=== PATIENT | male | born 1970 | race Asian ===

== ENCOUNTER 2025-04-03 13:53 | Outpatient (AMB) | payer OTHER, SELFPAY ==
--- NOTE | 2025-04-03 13:58 | HO.NEPHOV_ITS ---
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 He has had hypertension since 2013. He was on losartan 100 mg and amlodipine. About 2 weeks ago spironolactone 25 mg has been added. In January he had a serum creatinine of 1.57 with a EGFR of 52 mL/minute. He had a urine microalbumin creatinine ratio of 532 and hence this referral. Recently was found to have elevated blood sugars. He has new onset diabetes mellitus Farxiga has been recently added and he is not on any other antidiabetic medication. He has no specific complaints today. No headache nausea or vomiting. No shortness of breath no cough or hemoptysis. No polyuria polydipsia no blood in urine. No leg edema no fever no rash. Father had end stage renal disease and he was on dialysis for almost 4 years at age of 75. He is . He has 4 brothers and a sister and he is not aware of any other family L kidney disease. [facility] Medical History (Updated 04/03/25 @ 14:12 by Sunday Red MD) Pain in shoulder region Impaired glucose tolerance Headache Essential hypertension Insomnia Dyslipidemia Type 2 diabetes mellitus Family History Mother Hypertensive disorder Father Hypertensive disorder Kidney disease Dialysis patient Social History (Updated 04/03/25 @ 14:00 by Kandis Cortez MA) Alcohol intake: never Patient Tobacco Use Status: Never used Tobacco Physical Exam Vital Signs: Last Vital Signs Pulse 89 04/03/25 14:02 BP 110/70 04/03/25 14:02 Pulse Ox 98 04/03/25 14:02 Oxygen Delivery Method Room Air 04/03/25 14:02 BMI result Body Mass Index 25.4 Comfortable Neck supple no JVD. Lungs entry equal no rales. Heart S1-S2 heard no gallop or rub. Abdomen soft nontender. Neuro alert awake oriented. No asterixis. Extremities no edema. Results Reviewed Results Reviewed: Labs reviewed As of January 2025 serum creatinine 1.57 EGFR 52 mL/minute. Urine microalbumin creatinine ratio 532 Assessment & Plan Assessment & Plan (1) CKD (chronic kidney disease): Code(s): N18.9 - Chronic kidney disease, unspecified Category: Medical (2) HTN (hypertension): Code(s): I10 - Essential (primary) hypertension Category: Medical Plan Pleasant 53-year-old man with the longstanding history of hypertension has microalbuminuria with CKD. He has an elevated blood sugar and slightly elevated hemoglobin A1c which was diagnosed recently he is not on any antidiabetic medications. The differential diagnosis for CKD and proteinuria is rather wide at this time. Hypertension could be a cause. Although proteinuria could be related to diabetes mellitus the duration of elevated blood sugars are not consistent. Father had end stage renal disease and given this family history he needs further workup for possible glomerular nephritis including IgA nephropathy. At the present time blood pressure is well controlled He appears euvolemic. Initiated a workup for CKD including a renal ultrasonogram. Basic urine studies including urine protein creatinine ratio and serum electrophoresis. For now I will continue the current dose of antihypertensives. Encouraged him to stand low-sodium diet. Maintain blood pressure less than 130/80. Maintain hemoglobin A1c less than 6.5%. Further workup will be based on the outcome of the above baseline investiga tions. I have reassured him and he returned to office in the next few weeks. . Orders: Orders Creatinine Urine Today I10 - Essential (primary) hypertension, N18.9 - Chronic kidney disease, unspecified Parathyroid Hormone Intact Today I10 - Essential (primary) hypertension, N18.9 - Chronic kidney disease, unspecified Total Protein Urine Random Today I10 - Essential (primary) hypertension, N18.9 - Chronic kidney disease, unspecified Complete Blood Count no Diff Today I10 - Essential (primary) hypertension, N18.9 - Chronic kidney disease, unspecified US renal BI Today I10 - Essential (primary) hypertension, N18.9 - Chronic kidney disease, unspecified Complement C3 Today I10 - Essential (primary) hypertension, N18.9 - Chronic kidney disease, unspecified Complement C4 Today I10 - Essential (primary) hypertension, N18.9 - Chronic kidney disease, unspecified Comprehensive Met. Panel Today I10 - Essential (primary) hypertension, N18.9 - Chronic kidney disease, unspecified UA and rflx microscopic Today I10 - Essential (primary) hypertension, N18.9 - Chronic kidney disease, unspecified LUBA Reflex Titer and Pattern Today I10 - Essential (primary) hypertension, N18.9 - Chronic kidney disease, unspecified Protein Electrophoresis, Serum Today I10 - Essential (primary) hypertension, N18.9 - Chronic kidney disease, unspecified Coding Level of Care Code New Pt Level 4 (62350) Diagnoses CKD (chronic kidney disease) N18.9 HTN (hypertension) I10
[2025-04-03 14:02] VITALS: BP 110/70; PULSE 89; O2SAT 98; BMI 25.4
--- OUTSIDE RECORDS SUMMARY | 2025-04-03 19:20 | XMS_ITS | Data Portability ---
Author Organization [facility] Address [address] [place] [address] Assessment Encounter Date Assessment Date Assessment LastModified by Organization Details LastModified Time 01/11/2024 01/11/2024 #1 patient is at home, with No one present in the room #2 provider is at [facility] in a secure private location #3 This is a Telehealth visit conducted over secure video #4 Verbal &/or Written consent obtained #5 Length of medical discussion 17 minutes liudmila Not available 01/11/2024 17:25:05 10/17/2024 10/17/2024 #1 patient is at home, with No one present in the room #2 provider is at [facility] in a secure private location #3 This is a Telehealth visit conducted over secure video #4 Verbal &/or Written consent obtained #5 Length of medical discussion 13 minutes liudmila Not available 10/17/2024 08:45:53 Plan of Treatment Reminders Order Date Submit Date Provider Last Modified By Organization Details Last Modified Time Details Appointments Physical Exam 2024 03:45P M Kem Davila MD Not available Not available Not available Lab HbA1c (hemoglob in A1c), blood 2024 025 [facility], [address], [place], [address], 12/11/2024 08:10:22 CMP, serum or plasma 2024 025 [facility], [address], [place], [address], 12/11/2024 08:10:22 lipid panel, serum 2024 025 [place] [address] [facility], [address], [address], [place], [address], 12/11/2024 08:10:22 microalbu min/creat inine, mass ratio, urine 2024 025 [place] [address] [facility], [address], [address], [place], [address], 12/11/2024 08:10:22 lipid panel, serum 2024 025 [place] [address] [facility], [address], [address], [place], [address], 08/12/2024 09:16:55 HbA1c (hemoglob in A1c), blood 2024 025 [place] [address] [facility], [address], [address], [place], [address], 08/12/2024 09:16:55 microalbu min/creat inine, mass ratio, urine 2023 024 [place] [address] [facility], [address], [address], [place], [address], 02/22/2024 08:13:19 protein electroph oresis, urine 2023 024 [place] [address] [facility], [address], [address], [place], [address], 02/22/2024 08:13:19 microalbu min/creat inine, mass ratio, urine 2023 024 DANN [facility], [address], [address], [place], [address], 12/08/2023 17:21:27 HbA1c (hemoglob in A1c), blood 2023 024 [facility], [address], [address], [place], [address], 01/09/2024 05:24:55 lipid panel, serum 2023 024 [facility], [address], [address], [place], [address], 01/09/2024 05:24:54 noninvasi ve colorecta l cancer DNA + occult blood screening , QL, stool [facility], [address], [address], [place], [address], 12/28/2023 20:49:59 CMP, serum or plasma 2023 024 [facility], [address], [address], [place], [address], 01/09/2024 05:24:55 Referral nephrolog ist referral - 54 year old male with DMT2, proteinur ia, HTN, and CKD stage 3. please evaluate 2024 025 ZHENG Banks MD, [address] [place] [address] Dr, [address], [place], [address], 03/27/2025 10:29:28 podiatris t referral - please evaluate and treat left heel pain, suspect calcaneal osteophyt e. recommend ed heel inserts 2024 025 [facility], [address] [place], [address], 06/21/2024 11:20:47 Procedures None recorded. Surgeries None recorded. Imaging None recorded. Medication Orders Farxiga 10 mg tablet 2024 025 [id number], [address] [place], [address], 02/11/2025 11:14:11 amlodipin e 10 mg tablet 2024 025 [facility], [address] [place], [address], 02/11/2025 11:14:13 losartan 100 mg tablet 2024 025 [facility], [address] [place], [address], 02/11/2025 11:14:12 spironola ctone 25 mg tablet 2024 025 [facility] [address] [place], [address], 02/11/2025 11:17:23 atorvasta tin 40 mg tablet 2024 025 [facility], [address] [place], [address], 10/17/2024 08:50:18 amlodipin e 10 mg tablet 2024 025 [facility] [address] [place], [address], 10/17/2024 08:50:18 losartan 100 mg tablet 2024 025 [facility], [address] [place], [address], 10/17/2024 08:50:17 atorvasta tin 40 mg tablet 2024 025 [facility], [address] [place] [address], [address], 06/19/2024 16:31:37 amlodipin e 10 mg tablet 2024 025 [facility], [address] [place], [address], 06/19/2024 16:31:37 losartan 100 mg tablet 2024 025 [facility] [address] [place], [address], 06/19/2024 16:31:38 atorvasta tin 40 mg tablet 2023 024 [facility] [address] [place], [address], 12/04/2023 18:07:08 amlodipin e 5 mg tablet 2023 025 [facility] [address] [place], [address], 10/17/2024 08:42:21 losartan 100 mg tablet 2023 024 [facility] [address] [place], [address], 12/04/2023 18:07:08 Patient TargetsNo targets recorded. Patient Instructions Encounter Date Encounter Id Patient Instructions Last Modified By Organization Details Last Modified Time 12/04/2023 [id number] learning about type 2 diabetes jokallo Not available 12/04/2023 18:07:05 type 2 diabetes: care instructions jokallo Not available 12/04/2023 18:07:04 advance directives: care instructions jokallo Not available 12/04/2023 18:07:04 A healthy lifestyle: care instructions jokallo Not available 12/04/2023 18:07:05 Risks and benefits of vaccine were discussed with the patient and/or guardian. Patient/Guardian understands the risks and benefits. Patient/Guardian refusing vaccine administration. jokallo Not available 12/04/2023 21:09:05 01/11/2024 [id number] proteinuria: car e instructions jokallo Not available 01/11/2024 17:27:27 06/19/2024 [id number] prediabetes: car e instructions jokallo Not available 06/19/2024 16:31:34 high blood pressure: care instructions ramónashutoshrand Not available 06/19/2024 16:31:34 learning about high blood pressure rajeevrand Not available 06/19/2024 16:31:34 10/17/2024 [id number] Risks and benefits of medication(s) discussed with patient. Patient verbalized understanding. ramónashutoshrand Not available 10/17/2024 08:50:20 02/11/2025 [id number] Risks and benefits of medication(s) discussed with patient. Patient verbalized understanding. 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 please evaluate Referring Physician: Kem Davila [facility], Encounter Date: 02/11/2025 Results Created Date Observation Date Name Description Value Unit Range Abnormal Flag Note LastModifiedBy Organization Detail LastModifiedTime 12/08/19 24 12/08/2023 ALBUM IN, RANDO M URINE W/CRE ATINI NE creatinine, random urine 27 mg/dL 20-320 normal Not Available [facility] [address], [address], 12/08/2023 17:21:27 12/08/19 24 12/08/2023 ALBUM IN, RANDO M URINE W/CRE ATINI NE albumin, urine 16.3 mg/dL see note: normal Refer ence Range : Refer ence Range Not estab lishe d Not Available [facility] [address], [address], 12/08/2023 17:21:27 12/08/19 24 12/08/2023 ALBUM IN, RANDO M URINE W/CRE ATINI NE albumin/crea tinine ratio, random urine 604 mg/g_ creat <30 high The ADA defin es abnor malit ies in album in excre tion as follo ws: Album inuri a Categ ory Resul t (mg/g creat inine ) Jaqui l to Mildl y incre ased <30 Moder ately incre ased 30-29 9 Sever vivian incre ased > OR = 300 The ADA recom mends that at least two of three speci mens colle cted withi n a 3-6 month perio d be abnor mal befor e consi marifer g a patie nt to be withi n a diagn ostic categ ory. Not Available [facility] [place] [facility] [address] [place], [place], [address], 12/08/2023 17:21:27 12/25/19 24 12/25/2023 COLOG UARD cologuard result reportable NEGATI VE negati ve normal NEGAT MAGDALENA TEST RESUL T. A negat magdalena Colog uard resul t indic ates a low likel ihood that a color ectal cance r (CRC) or advan alanna adeno ma (krzysztof omato us polyp s with more advan alanna pre-m align ant featu res) is prese nt. The chanc e that a perso n with a negat magdalena Colog uard test has a color ectal cance r is less than 1 in 1500 (nega tive predi ctive value >99.9 %) or has an advan alanna adeno ma is less than 5.3% (nega tive predi ctive value 94.7% ). These data are based on a prosp ectiv e cross -sect ional study of 10,00 0 indiv idual s at [place] risk for color ectal cance r who were scree josefa with both Colog uard and colon oscop y. (Glenn Lopez al, N Engl J Med 2014; 370(1 4):12 86-12 97) The jaqui l value (refe rence range ) for this assay is negat magdalena. COLOG UARD RE-SC REENI NG RECOM MENDA TION: Perio dic color ectal cance r scree jose is an impor tant part of preve ntive healt hcare for asymp tomat ic indiv idual s at [facility] risk for color ectal cance r. Follo wing a negat magdalena Colog uard resul t, the Ameri can Cance r Socie ty and U.S. Multi -Soci ety Task Force scree jose guide lines recom mend a Colog uard re-sc reedionicio ng inter nahum of 3 years . Refer ences : Ameri can Cance r Socie ty Guide line for Color ectal Cance r Scree jose: https ://trang w.can cer.o rg/ca ncer/ colon -rect al-ca ncer/ detec tion- diagn osis- stagi ng/ac s-rec ommen datio ns.ht ml.; Reji BLACKWELL, Lulu URIAS, Gomez RUVALCABA, Color ectal Cance r Scree jose: Recom menda tions for Physi cians and Patie nts from the U.S. Multi -Soci ety Task Force on Color ectal Cance r Scree jose , Am J Gastr carriente rolog y 2017; 112:1 016-1 030. TEST DESCR IPTIO N: [place] site algor ithmi c wilton sis of stool DNA-b ioaicha kers with hemog lobin immun oassa y. Quant itati ve value s of indiv idual bioma rkers are not repor table and are not assoc iated with indiv idual bioma rker resul t refer ence range s. Colog uard is inten ded for color ectal cance r scree jose of adult s of eithe r sex, 45 years or older , who are at the medical center for color ectal cance r (CRC) . Colog uard has been appro speedy for use by the U.S. FDA. The perfo rmanc e of Colog uard was estab lishe d in a cross secti onal study of the medical center adult s aged 50-84 . Colog uard perfo rmanc e in patie nts ages 45 to 49 years was estim ated by sub-g roup wilton sis of near- age group s. Colon oscop ies perfo rmed for a posit magdalena resul t may find as the most clini jayy signi ficmarily t lesio n: color ectal cance r [4.0% ], advan alanna adeno ma (incl uding sessi le padmini elaine polyp s great er than or equal to 1cm diame ter) [20%] or non- advan alanna adeno ma [31%] ; or no color ectal neopl lai [45%] . These estim ates are deriv ed from a prosp ectiv e cross -sect ional scree jose study of 0 indiv idual s at [facility] risk for color ectal cance r who were scree josefa with both Colog uard and colon oscop y. (Glenn Branch et al, N Engl J Med 2014; 370(1 4):12 86-12 97.) Colog uard may produ ce a false negat magdalena or false posit magdalena resul t (no color ectal cance r or preca ncero us polyp prese nt at colon oscop y follo w up). A negat magdalena Colog uard test resul t does not guara ntee the absen ce of CRC or advan alanna adeno ma (pre- cance r). The curre nt Colog uard scree jose inter nahum is every 3 years . (Amer ican Cance r Socie ty and U.S. Multi -Soci ety Task Force ). Colog uard perfo rmanc e data in a 0 patie nt pivot al study using colon oscop y as the refer ence metho d can be acces sed at the follo wing locat ion: www.e xactl abs.c om/re jean-paul . Addit ional descr iptio n of the Colog uard test proce ss, warni ngs and preca ution s can be found at www.c carol francisd.c om. Not Available [facility] [address], [place], [address], 12/28/2023 20:49:59 01/08/20 24 01/09/2024 LIPID PANEL WITH REFLE X TO DIREC T LDL cholesterol, total 158 mg/dL <200 normal Not Available [facility] [place] [facility] [address], [place], [address], 01/09/2024 05:24:54 01/08/20 24 01/09/2024 LIPID PANEL WITH REFLE X TO DIREC T LDL HDL cholesterol 40 mg/dL > or = 40 normal Not Available [facility] [place] [facility] [address], [place], [address], 01/09/2024 05:24:54 01/08/20 24 01/09/2024 LIPID PANEL WITH REFLE X TO DIREC T LDL triglyceride s 154 mg/dL <150 high Not Available [facility] [place] [facility] [address], [place], [address], 01/09/2024 05:24:54 01/08/20 24 01/09/2024 LIPID PANEL WITH REFLE X TO DIREC T LDL LDL-choleste rol 92 mg/dL _(emma c) normal Refer ence range : <100 Jeni able range <100 mg/dL for prima ry preve ntion ; <70 mg/dL for patie nts with CHD or diabe tic patie nts with > or = 2 CHD risk facto rs. LDL-C is now calcu lated using the Elissa n-Hop kins calcu rashid n, which is a valid ated novel randallo peyman trinh r accur acy than the Fried nubia equat ion in the estim ation of LDL-C . Elissa swartz SS et al. EMY. 2013; 310(1 9): 2061- 2068 (http ://ed ucati on.Qu Demetrius [employer]. com/f aq/FA Q164) Not Available [facility] [place] [facility] [address], [place], [address], 01/09/2024 05:24:54 01/08/20 24 01/09/2024 LIPID PANEL WITH REFLE X TO DIREC T LDL chol/HDLC ratio 4.0 (calc ) <5.0 normal Not Available [facility] [address], [place], [address], 01/09/2024 05:24:54 01/08/20 24 01/09/2024 LIPID PANEL WITH REFLE X TO DIREC T LDL non HDL cholesterol 118 mg/dL _(emma c) <130 normal For patie nts with diabe malia plus 1 major ASCVD risk facto r, treat ing to a non-H DL-C goal of <100 mg/dL (LDL- C of <70 mg/dL ) is consi beverley worthington optio n. Not Available [facility] [place] [facility] [address], [place], [address], 01/09/2024 05:24:54 01/08/20 24 01/09/2024 COMPR EHENS MAGDALENA METAB OLIC PANEL glucose 94 mg/dL 65-99 normal Fasti ng refer ence inter nahum Not Available [facility] [place] [facility] [address], [place], [address], 01/09/2024 05:24:55 01/08/20 24 01/09/2024 COMPR EHENS MAGDALENA METAB OLIC PANEL urea nitrogen (BUN) 20 mg/dL 7-25 normal Not Available [facility] [address], [place], [address], 01/09/2024 05:24:55 01/08/20 24 01/09/2024 COMPR EHENS MAGDALENA METAB OLIC PANEL creatinine 1.25 mg/dL 0.70-1 .30 normal Not Available [facility] [address], [place], [address], 01/09/2024 05:24:55 01/08/20 24 01/09/2024 COMPR EHENS MAGDALENA METAB OLIC PANEL eGFR 69 mL/mi n/1.7 3m2 > or = 60 normal Not Available [facility] [place] [facility] [address], [place], [address], 01/09/2024 05:24:55 01/08/20 24 01/09/2024 COMPR EHENS MAGDALENA METAB OLIC PANEL BUN/creatini ne ratio SEE NOTE: (calc ) 6-22 Not Repor elaine: BUN and Creat inine are withi n refer ence range . Not Available [facility] [address], [place], [address], 01/09/2024 05:24:55 01/08/20 24 01/09/2024 COMPR EHENS MAGDALENA METAB OLIC PANEL sodium 138 mmol/ L 135-14 6 normal Not Available [facility] [address], [place], [address], 01/09/2024 05:24:55 01/08/20 24 01/09/2024 COMPR EHENS MAGDALENA METAB OLIC PANEL potassium 3.9 mmol/ L 3.5-5. 3 normal Not Available [facility] [address], [place], [address], 01/09/2024 05:24:55 01/08/20 24 01/09/2024 COMPR EHENS MAGDALENA METAB OLIC PANEL chloride 109 mmol/ L 98-110 normal Not Available [facility] [address], [place], [address], 01/09/2024 05:24:55 01/08/20 24 01/09/2024 COMPR EHENS MAGDALENA METAB OLIC PANEL carbon dioxide 22 mmol/ L 20-32 normal Not Available [facility] [address], [place], [address], 01/09/2024 05:24:55 01/08/20 24 01/09/2024 COMPR EHENS MAGDALENA METAB OLIC PANEL calcium 8.9 mg/dL 8.6-10 .3 normal Not Available [facility] [address], [place], [address], 01/09/2024 05:24:55 01/08/20 24 01/09/2024 COMPR EHENS MAGDALENA METAB OLIC PANEL protein, total 6.9 g/dL 6.1-8. 1 normal Not Available [facility] [address], [place], [address], 01/09/2024 05:24:55 01/08/20 24 01/09/2024 COMPR EHENS MAGDALENA METAB OLIC PANEL albumin 4.5 g/dL 3.6-5. 1 normal Not Available [facility] [address], [place], [address], 01/09/2024 05:24:55 01/08/20 24 01/09/2024 COMPR EHENS MAGDALENA METAB OLIC PANEL globulin 2.4 g/dL_ (calc ) 1.9-3. 7 normal Not Available [facility] [address], [place], [address], 01/09/2024 05:24:55 01/08/20 24 01/09/2024 COMPR EHENS MAGDALENA METAB OLIC PANEL albumin/glob ulin ratio 1.9 (calc ) 1.0-2. 5 normal Not Available [facility] [address], [place], [address], 01/09/2024 05:24:55 01/08/20 24 01/09/2024 COMPR EHENS MAGDALENA METAB OLIC PANEL bilirubin, total 0.8 mg/dL 0.2-1. 2 normal Not Available [facility] [address], [place], [address], 01/09/2024 05:24:55 01/08/20 24 01/09/2024 COMPR EHENS MAGDALENA METAB OLIC PANEL alkaline phosphatase 73 U/L 35-144 normal Not Available [facility] [place] [facility] [address], [address], 01/09/2024 05:24:55 01/08/20 24 01/09/2024 COMPR EHENS MAGDALENA METAB OLIC PANEL AST 20 U/L 10-35 normal Not Available [facility] [place] [facility] [address], [place], [address], 01/09/2024 05:24:55 01/08/20 24 01/09/2024 COMPR EHENS MAGDALENA METAB OLIC PANEL ALT 31 U/L 9-46 normal Not Available [facility] [place] [facility] [address], [address], 01/09/2024 05:24:55 01/08/20 24 01/09/2024 HEMOG LOBIN A1C hemoglobin A1C 6.4 %_of_ total _HGB <5.7 high For someo ne witho ut known diabe malia, a hemog lobin A1c value betwe en 5.7% and 6.4% is consi stent with predi abete s and shoul d be confi rmed with a follo w-up test. For someo ne with known diabe malia, a value <7% indic ates that their diabe malia is well contr olled . A1c targe ts shoul d be indiv idual ized based on durat ion of diabe malia, age, comor bid condi tions , and other consi derat ions. This assay resul t is consi stent with an incre ased risk of diabe malia. Curre ntly, no conse nsus exist s regar ding use of hemog lobin A1c for diagn osis of diabe malia for child ivania. This test was perfo rmed on the Nicolasa brynn c503 platf orm. Effec tive 3/4/2 4, a taya e in test platf orms from the [facility] to the Nicolasa brynn c503 may have shift ed HbA1c resul ts cindy red to histo rical resul ts. Based on labor atory valid ation testi ng condu cted at [employer] , the Nicolasa platf orm relat magdalena to the [facility] platf orm had an avera ge incre ase in HbA1c value of < or = 0.3%. This diffe rence is withi n accep elaine varia bilit y estab lishe d by the [facility] hemog lobin Stand brandonz ation Progr am. Note that not all indiv idual s will have had a shift in their resul ts and direc t cindy rison s betwe en histo rical and curre nt resul ts for testi ng condu cted on diffe rent platf orms is not recom lucius d. Not Available [facility] [place] [facility] [address], [address], 01/09/2024 05:24:55 01/25/20 25 01/25/2025 LIPID PANEL WITH REFLE X TO DIREC T LDL cholesterol, total 164 mg/dL <200 normal Not Available [facility] [place] [facility] [address], [address], 01/25/2025 21:25:14 01/25/20 25 01/25/2025 LIPID PANEL WITH REFLE X TO DIREC T LDL HDL cholesterol 44 mg/dL > or = 40 normal Not Available [facility] [place] [facility] [address], [address], 01/25/2025 21:25:14 01/25/20 25 01/25/2025 LIPID PANEL WITH REFLE X TO DIREC T LDL triglyceride s 116 mg/dL <150 normal Not Available [facility] [address], [address], 01/25/2025 21:25:14 01/25/20 25 01/25/2025 LIPID PANEL WITH REFLE X TO DIREC T LDL LDL-choleste rol 99 mg/dL _(emma c) normal Refer ence range : <100 Jeni able range <100 mg/dL for prima ry preve ntion ; <70 mg/dL for patie nts with CHD or diabe tic patie nts with > or = 2 CHD risk facto rs. LDL-C is now calcu lated using the Elissa n-Hop kins calcu latnima n, which is a valid ated novel metho d provi mike gayathri r accur acy than the Fried nubia equat ion in the estim ation of LDL-C . Elissa swartz SS et al. EMY. 2013; 310(1 9): 2061- 2068 (http ://ed ucati on.[employer]. [employer]/f aq/FA Q164) Not Available [facility] [address], [address], 01/25/2025 21:25:14 01/25/20 25 01/25/2025 LIPID PANEL WITH REFLE X TO DIREC T LDL chol/HDLC ratio 3.7 (calc ) <5.0 normal Not Available [facility] [address], [place], [address], 01/25/2025 21:25:14 01/25/20 25 01/25/2025 LIPID PANEL WITH REFLE X TO DIREC T LDL non HDL cholesterol 120 mg/dL _(emma c) <130 normal For patie nts with diabe malia plus 1 major ASCVD risk facto r, treat ing to a non-H DL-C goal of <100 mg/dL (LDL- C of <70 mg/dL ) is consi dered a thera peuti c optio n. Not Available [facility] [address], [address], 01/25/2025 21:25:14 01/25/20 25 01/25/2025 ALBUM IN, RANDO M URINE W/CRE ATINI NE creatinine, random urine 134 mg/dL 20-320 normal Not Available [facility] [address], [place], [address], 01/25/2025 21:25:14 01/25/2001/25/2025 ALBUM IN, RANDO M URINE W/CRE ATINI NE albumin, urine 75.3 mg/dL see note: normal Refer ence Range : Refer ence Range Not estab lishe d Verif ied by repea t wilton sis. Not Available [facility] [address], [place], [address], 01/25/2025 21:25:14 01/25/2001/25/2025 ALBUM IN, RANDO M URINE W/CRE ATINI NE albumin/crea tinine ratio, random urine 562 mg/g_ creat <30 high The ADA defin es abnor malit ies in album in excre tion as follo ws: Album inuri a Categ ory Resul t (mg/g creat inine ) Jaqui l to Mildl y incre ased <30 Moder ately incre ased 30-29 9 Sever vivian incre ased > OR = 300 The ADA recom mends that at least two of three speci mens colle cted withi n a 3-6 month perio d be abnor mal befor e consi marifer g a patie nt to be withi n a diagn ostic categ ory. Not Available [facility] [address], [place], [address], 01/25/2025 21:25:14 01/25/2001/25/2025 COMPR EHENS MAGDALENA METAB OLIC PANEL glucose 111 mg/dL 65-139 normal Non-f astin g refer ence inter nahum Not Available [facility] [address], [place], [address], 01/25/2025 21:25:15 01/25/20 25 01/25/2025 COMPR EHENS MAGDALENA METAB OLIC PANEL urea nitrogen (BUN) 23 mg/dL 7-25 normal Not Available [facility] [address], [place], [address], 01/25/2025 21:25:15 01/25/20 25 01/25/2025 COMPR EHENS MAGDALENA METAB OLIC PANEL creatinine 1.57 mg/dL 0.70-1 .30 high Not Available [facility] [address] [address], [place], [address], 01/25/2025 21:25:15 01/25/20 25 01/25/2025 COMPR EHENS MAGDALENA METAB OLIC PANEL eGFR 52 mL/mi n/1.7 3m2 > or = 60 low Not Available [facility] [address], [place], [address], 01/25/2025 21:25:15 01/25/20 25 01/25/2025 COMPR EHENS MAGDALENA METAB OLIC PANEL BUN/creatini ne ratio 15 (calc ) 6-22 normal Not Available [facility] [address], [place], [address], 01/25/2025 21:25:15 01/25/20 25 01/25/2025 COMPR EHENS MAGDALENA METAB OLIC PANEL sodium 140 mmol/ L 135-14 6 normal Not Available [facility] [address], [place], [address], 01/25/2025 21:25:15 01/25/20 25 01/25/2025 COMPR EHENS MAGDALENA METAB OLIC PANEL potassium 3.7 mmol/ L 3.5-5. 3 normal Not Available [facility] [address], [place], [address], 01/25/2025 21:25:15 01/25/20 25 01/25/2025 COMPR EHENS MAGDALENA METAB OLIC PANEL chloride 107 mmol/ L 98-110 normal Not Available [facility] [address], [place], [address], 01/25/2025 21:25:15 01/25/20 25 01/25/2025 COMPR EHENS MAGDALENA METAB OLIC PANEL carbon dioxide 24 mmol/ L 20-32 normal Not Available [facility] [address], [place], [address], 01/25/2025 21:25:15 01/25/20 25 01/25/2025 COMPR EHENS MAGDALENA METAB OLIC PANEL calcium 8.9 mg/dL 8.6-10 .3 normal Not Available [facility] [address], [place], [address], 01/25/2025 21:25:15 01/25/20 25 01/25/2025 COMPR EHENS MAGDALENA METAB OLIC PANEL protein, total 6.5 g/dL 6.1-8. 1 normal Not Available [facility] [address], [place], [address], 01/25/2025 21:25:15 01/25/20 25 01/25/2025 COMPR EHENS MAGDALENA METAB OLIC PANEL albumin 4.3 g/dL 3.6-5. 1 normal Not Available [facility] [address], [place], [address], 01/25/2025 21:25:15 01/25/20 25 01/25/2025 COMPR EHENS MAGDALENA METAB OLIC PANEL globulin 2.2 g/dL_ (calc ) 1.9-3. 7 normal Not Available [facility] [address], [place], [address], 01/25/2025 21:25:15 01/25/20 25 01/25/2025 COMPR EHENS MAGDALENA METAB OLIC PANEL albumin/glob ulin ratio 2.0 (calc ) 1.0-2. 5 normal Not Available [facility] [address], [place], [address], 01/25/2025 21:25:15 01/25/20 25 01/25/2025 COMPR EHENS MAGDALENA METAB OLIC PANEL bilirubin, total 0.7 mg/dL 0.2-1. 2 normal Not Available [facility] [address], [place], [address], 01/25/2025 21:25:15 01/25/20 25 01/25/2025 COMPR EHENS MAGDALENA METAB OLIC PANEL alkaline phosphatase 78 U/L 35-144 normal Not Available [facility] [address], [place], [address], 01/25/2025 21:25:15 01/25/20 25 01/25/2025 COMPR EHENS MAGDALENA METAB OLIC PANEL AST 23 U/L 10-35 normal Not Available [facility] [address], [place], [address], 01/25/2025 21:25:15 01/25/20 25 01/25/2025 COMPR EHENS MAGDALENA METAB OLIC PANEL ALT 40 U/L 9-46 normal Not Available [facility] [address], [address], 01/25/2025 21:25:15 01/25/2001/25/2025 HEMOG LOBIN A1C hemoglobin A1C 7.3 % <5.7 high For someo ne witho ut known diabe malia, a hemog lobin A1c value of 6.5% or great er indic ates that they may have diabe malia and this shoul d be confi rmed with a follo w-up test. For someo ne with known diabe malia, a value <7% indic ates that their diabe malia is well contr olled and a value great er than or equal to 7% indic ates subop timal contr ol. A1c targe ts shoul d be indiv idual ized based on durat ion of diabe malia, age, comor bid condi tions , and other consi derat ions. Curre ntly, no conse nsus exist s angelitoar mike use of hemog lobin A1c for diagn osis of diabe malia for child ivania. Not Available [facility] [address], [place], [address], 01/25/2025 21:25:15 Result Notes None recorded. Problems Name Problem SNOMED Code Status Onset Date Resolution Date Notes Provider Name and Address Organization Details Recorded Time Essential hypertensio n 10259153 Active Kem Davila MD [address] [place] [address], [address], [facility] 2 10:15:35 Headache 26394978 Active Karl Ci Li [facility] 6 19:57:12 Insomnia 649859957 Active Karl Ci Li [facility] 6 19:57:12 Pain of shoulder region 60886492 Active Karl Ci Li [facility] 6 19:57:12 Impaired glucose tolerance 9144300 Active Karl Ci Li [facility] 6 19:57:12 Hyperlipide brit 65425106 Completed 05/16/2018 Kem Davila MD [address] [place] [address], [address], [facility] 9 09:30:10 Dyslipidemi a 428363187 Active 2018 Kem Davila MD [address] [place] [address], [address], [facility] 2 10:15:29 Type 2 diabetes mellitus 32359089 Active 2020 Kem Davila MD [address] [place] [address], [address], [facility] 5 11:01:53 Problem Notes None recorded. Procedures Surgical History Date Name Laterality Status Provider Name and Address Organization Details Recorded Time 5 Diabetic Foot Exam completed Kem Davila MD [address] [place], [address], [facility] 03/05/2025 09:30:45 4 Diabetic Foot Exam completed Kem Davila MD [address] [place], [address], [facility] 12/04/2023 18:10:26 1 DSMT/s Assessment / Education Record completed Hortencia Al RN [facility] 03/17/2021 16:04:32 Imaging Results None recorded. Procedure Notes None recorded. Medical Equipment None Reported. Allergies No known drug allergies Medications Name Sig Start Date Stop Date Status Note LastModified by Organization Details LastModified Time losartan 50 mg tablet TAKE 2 TABLETS BY MOUTH DAILY AT THE SAME TIME 03/02 completed Not Available Not Available Not Available atorvastatin 40 mg tablet TAKE 1 TABLET BY MOUTH EVERY DAY 2024 active Not Available Not Available Not Avai lable amlodipine 2.5 mg tablet TAKE 1 TABLET BY MOUTH EVERY DAY - NEEDS F/U FOR REFILLS 06/21 completed Not Available Not Available Not Available melatonin 3 mg tablet Take 1 tablet every day by oral route at bedtime as needed for sleeping . 07/17 completed Not Available Not Available Not Available amlodipine 5 mg tablet Take 1 tablet every day by oral route. 10/17 completed Not Available Not Available Not Available spironolacto ne 25 mg tablet Take 1 tablet every day by oral route, for Blood pressure . 2024 active Not Available Not Available Not Avai lable amlodipine 10 mg tablet Take 1 tablet every day by oral route. 2024 active Not Available Not Available Not Avai lable simvastatin 20 mg tablet TAKE 1 TABLET BY MOUTH EVERY DAY active Not Available Not Available No t Available losartan 25 mg tablet TAKE 1 TABLET BY MOUTH EVERY DAY 07/10 completed Not Available Not Available Not Available diclofenac sodium 75 mg tablet,delay ed release Take 1 tablet twice a day by oral route. 03/16 completed Not Available Not Available Not Available losartan 100 mg tablet TAKE 1 TABLET BY MOUTH EVERY DAY 2024 active Not Available Not Available Not Avai lable fluticasone propionate 50 mcg/actuatio n nasal spray,suspen fernanda INHALE ONE SPRAY PER NOSTRIL DAILY 03/05 completed Not Available Not Available Not Available Augmentin 500 mg-125 mg tablet Take 1 tablet every 8 hours by oral route for 7 days. 09/19 completed Not Available Not Available Not Available Excedrin Tension Headache 500 mg-65 mg tablet Take 2 tablets every 6 hours by oral route as needed. 09/19 completed Not Available Not Available Not Available Farxiga 10 mg tablet Take 1 tablet every day by oral route. 2024 active Not Available Not Available Not Avai lable Vitals Date Recorded Body height Body mass index (BMI) Body weight Respiratory rate Heart rate Oxygen saturation Systolic And Diastolic Systolic And Diastolic Provider Name and Address Organization Details Last Updated DateTime 5 167.01 cm 22.8 kg/m2 79801.9 3 g 18 /min 90 /min 99 % 150/90 mm[Hg] 148/90 mm[Hg] Sobeida Wells [facility] 16:10:39 Date Recorded Body height Systolic And Diastolic Systolic And Diastolic Provider Name and Address Organization Details Last Updated DateTime 10/17/2024 167.01 cm 155/92 mm[Hg] 124/89 mm[Hg] Kem Davila MD [address] [place], [address], [facility] 10/17/2024 08:44:37 Date Recorded Body height Body mass index (BMI) Body weight Respiratory rate Oxygen saturation Heart rate Systolic And Diastolic Systolic And Diastolic Provider Name and Address Organization Details Last Updated DateTime 4 167.01 cm 22.8 kg/m2 82522.9 3 g 18 /min 97 % 74 /min 148/99 mm[Hg] 149/100 mm[Hg] Sobeida Wells [facility] 4 17:36:43 Date Recorded Body height Heart rate Systolic And Diastolic Systolic And Diastolic Provider Name and Address Organization Details Last Updated DateTime 01/11/2024 167.01 cm 74 /min 163/101 mm[Hg] 157/97 mm[Hg] Kem Davila MD [address] [place], [address] , [facility] 01/11/2024 17:17:49 Date Recorded Body height Body mass index (BMI) Body weight Body temperature Heart rate Oxygen saturation Systolic And Diastolic Systolic And Diastolic Provider Name and Address Organization Details Last Updated DateTime 167.01 cm 26.4 kg/m2 09904.7 1 g 96 [degF] 73 /min 99 % 153/93 mm[Hg] 156/95 mm[Hg] Faina Castro [facility] 5 10:44:38 Social History Question Answer Notes LastModified by Organization Details LastModified Time Tobacco Smoking Status [email or web address] 03/05/2022 09:57:10 Do You Have An Advance Directive? No Information not available 12/04/2023 What Is Your Level Of Caffeine Consumption? Occasional Tea Sometimes Information not available 06/12/2015 How Much Tobacco Do You Chew? None Information not available 06/12/2015 In The 14 Days Before Symptom Onset, Have You Had Close Contact With A Laboratory-confir med COVID-19 While That Case Was Ill? No [email or web address] Information not available 06/11/2020 In The 14 Days Before Symptom Onset, Have You Had Close Contact With A Person Who Is Under Investigation For COVID-19 While That Person Was Ill? No [email or web address] Information not available 06/11/2020 Have You Been To An Area Known To Be High Risk For COVID-19? No Information not available 06/11/2020 What Type Of Diet Are You Following? REGULAR Eats Chicken Only Information not available 06/12/2015 Education 4 Year College Informatio n not available 06/12/2015 Who Is Your Employer? [employer] Information not available 12/04/2023 Have There Been Any Changes To Your Family Or Social Situation? No Information not available 12/04/2023 Are There Any Guns Present In Your Home? No Information not available 06/12/2015 Hard Of Hearing Or Deaf In One Or Both Ears? No [email or web address] Information not available 05/19/2015 Legally Blind In One Or Both Eyes? No [email or web address] Information not available 05/19/2015 Live Alone Or With Others? With Others Information not available 06/12/2015 Homeless Not Homeless Information not available 08/15/2018 In The Past Month, Was There Any Day When You Or Someone In Your Family Went Hungry Because You Didn't Have Money For Food? No [email or web address] Information not available 08/15/2018 Do You Need Help Finding Clothing Or Other Supplies For Yourself Or For Your Children? No Information not available 08/15/2018 Do You Need Medicine But Cannot Buy It Because It Is Too Expensive? No [email or web address] Information not available 08/15/2018 Do You Need Transportation To Medical Appointments? No Information not available 08/15/2018 Do You Worry That You Can't Pay Your Utility Bill(s)? (electric, Gas, Heating Oil, Telephone) No [email or web address] Information not available 03/05/2022 Do You Prefer To Learn By: Verbal Communication [email or web address] Information not available 08/15/2018 Do You Have Any Of The Following Barriers To Learn: None Of The Above Information not available 08/15/2018 Last [facility] Completion Date 02/11/2025 Information not available 02/11/2025 Did You Have A Dental Visit In The Last 12 Months? Yes Information not available 12/04/2023 Did You Have A Dental Problem In The Last 6 Months? No Information not available 12/04/2023 Do You Commonly Experience Dry Mouth (i.e., Requiring Swallowing Water To Eat Crackers)? No Information not available 12/04/2023 Do You Experience Stomach Acid In Your Mouth Or Throat After Eating Or When Lying Down On A Daily Or Almost Daily Basis? No Information not available 12/04/2023 Do You Experience Tooth Pain Or Bleeding Gums When You Eat Or Ogden Your Teeth? No Information not available 12/04/2023 Has Anyone In The Immediate Family (including A Caregiver) Had Tooth Decay Or Lost A Tooth From Tooth Decay In The Past Year? (Yes Indicates Positive Result) No Information not available 12/04/2023 On Average, How Many Days Per Week Do You Ogden Your Teeth For At Least Two Minutes, Twice Daily, Using Fluoride Toothpaste And Floss At Least Once Daily? 7 Information not available 12/04/2023 On Average, How Many Times Daily Do You Consume Starch Or Sugar (sugary Snacks Or Sugary Drinks) Between Meals? 2-3 Information not available 12/04/2023 Are You Deaf Or Do You Have Serious Difficulty Hearing? No Information not available 12/04/2023 Are You Blind Or Do You Have Serious Difficulty Seeing, Even When Wearing Glasses? No Information not available 12/04/2023 Date Of Last Completion 12/04/2023 Information not available 12/04/2023 Are You Deaf Or Do You Have Serious Difficulty Hearing? Test 1 No Information not available 12/04/2023 Aged 5 Or Older: Do You Have Difficulty Dressing Or Bathing? Test No Information not available 12/04/2023 Marital Status Informatio n not available 06/12/2015 What Was The Date Of Your Most Recent Tobacco Screening? 02/11/2025 Information not available 02/11/2025 How Many Children Do You Have? 2 Information not available 12/04/2023 What Is Your Relationship Status? In [facility], > 20 Years Information not available 12/04/2023 Do You Use Your Seat Belt Or Car Seat Routinely? Yes Information not available 06/12/2015 Are You Sexually Active? No Information not available 06/12/2015 Do You Have Smoke And Carbon Monoxide Detectors In Your Home? Yes Information not available 06/12/2015 How Much Tobacco Do You Smoke? No Information not available 05/19/2015 Do You Use Sunscreen Routinely? No Information not available 06/12/2015 Has Tobacco Cessation Counseling Been Provided? Yes Information not available 12/04/2023 On What Date Was Tobacco Cessation Counseling Provided? 12/04/2023 Information not available 12/04/2023 How Many Years Have You Smoked Tobacco? 0 [email or web address] Information not available 03/03/2016 Sex: Male Functional Status Question Answer Note LastModified by Organizat ion Details LastModified Time Do you or have you ever used any other forms of tobacco or nicotine? No [email or web address] Information not available 03/05/2022 What is your level of alcohol consumption? None [email or web address] Information not available 12/02/2015 Are you currently employed? Yes Information not available 06/12/2015 Do you have transportation difficulties? No Information not available 12/04/2023 Are you able to care for yourself independently? 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 None recommend pt exercise Information not available 06/12/2015 Mental Status None recorded. Family History Relationship Description Onset Age of this Age Resolved Age Notes LastModified by Organization Details LastModified Time Mother Hypertensive disorder [email or web address] Not available 2015 19:51:32 Father Hypertensive disorder [email or web address] Not available 2015 19:51:32 Father Kidney disease on dialys is [email or web address] Not available 07/17/2017 09:51:53 Notes:Colon Cancer: None Pro state Cancer: None Medical History Condition Response Gout N Anxiety/Depression N Renal Failure N Kidney Stones N Breast Cancer N Erectile Dysfunction N Lung Cancer N Reflux Disease (GERD/Heartburn/Reflux) N Testicular Cancer N Incontinence N Hepatitis (A,B or C) N Drug Abuse/Addiction N Chronic Neck or Back Pain N Post Traumatic Stress Disorder N Headaches/Migraines N Alcoholism N Tuberculosis or a Positive PPD N Seizure Disorder (Epilepsy) N Hemorrhoids N Frequent Ear Infections N Frequent Sinus Infections N Blood Clot N Other type of Cancer N Stroke N ADHD N Endometriosis N High Cholesterol Y Skin Cancer N Colorectal Cancer N Rheumatoid Arthritis N Panic Disorder N Fibromyalgia N Schizophrenia N Irritable Bowel Syndrome N Chronic Fatigue Syndrome N Osteoarthritis N Scoliosis N Thyroid Disorder or Cancer N Frequent Urinary Tract Infections N Ulcers or Gastrointestinal Bleed N Prostate Cancer N Gallstones N Eating Disorder N PreDiabetes N Anemia N COPD (emphysema or chronic bronchitis) N Diabetes N Cervical/Uterine/Ovarian Cancer N Cataracts N Benign Prostate Hyperplasia (BPH) N Allergic Rhinitis N Insomnia N Eczema N Obsessive Compulsive Disorder (OCD) N Asthma N Heart Attack N Lupus N Psoriasis N Crohn's Disease or Ulcerative Colitis N Bipolar Disorder N Autism N Sleep Apnea N AIDS or HIV N Heart Disease N Hypertension Y Osteoporosis N Immunizations Vaccine Type Date Status Note Provider Name and Address Organization Details Recorded Time Influenza, split virus, quadrivalent, PF 017 cancelled patient objection Not Available [facility] 06/01/2019 02:13:16 Influenza, split virus, quadrivalent, PF 017 completed Not Available [facility] 06/01/2019 02:13:15 Tdap 018 cancelled patient objection Not Available [facility] 06/01/2019 02:13:28 Influenza, high-dose, trivalent, PF 016 completed Sammie Caceres [facility] 03/03/2016 09:18:24 COVID-19, mRNA, LNP-S, PF, 30 mcg/0.3 mL dose 021 completed Faina Linder RN [facility] 03/30/2021 18:07:45 Influenza, split virus, quadrivalent, PF 022 cancelled patient objection Kem Davila MD [address] [place], [address], [facility] 03/07/2022 20:23:15 COVID-19, mRNA, LNP-S, bivalent, PF, 50 mcg/0.5 mL or 25mcg/0.25 mL dose 022 cancelled patient objection Kem Davila MD [address] [place], [address], [facility] 03/07/2022 20:23:15 Influenza, split virus, quadrivalent, PF 023 cancelled patient objection Kem Davila MD [address] [place], [address], [facility] 06/20/2022 13:00:54 COVID-19, mRNA, LNP-S, bivalent, PF, 50 mcg/0.5 mL or 25mcg/0.25 mL dose 023 cancelled patient objection Kem Davila MD [address] [place] [address], [address], [facility] 06/20/2022 13:00:54 pneumococcal polysaccharide PPV23 023 cancelled patient objection Kem Davila MD [address] [place] [address], [address], [facility] 06/20/2022 13:00:54 Tdap 024 cancelled patient objection Kem Davila MD [address] [place] [address], [address], [facility] 12/04/2023 21:03:22 COVID-19, mRNA, LNP-S, PF, 30 mcg/0.3 mL dose 021 completed Sobeida Wells [facility] 12/04/2023 17:32:00 Past Encounters Encounter ID Performer Location Encounter Start Date Encounter Closed Date Diagnosis/Indication Diagnosis SNOMED-CT Code Diagnosis ICD10 Code Diagnosis IMO Codes Diagnosis Note [id number] Abdelrahman Berger MD [address] [address] 05/19/2015 15:09:41 05/19/2015 16:09:59 Essential hypertension 53838021 I10 stable, follow -consider dec meds at next visit Pain of [place] region 87929337 M25.511 ddx-rotato r cuff tear, labral tear, sprain, OA -likely rotator cuff strain -pt f6w, f/u if not improving consider mri -pt refused steroid injection [id number] YENNI HUIZAR [address] [address] 06/12/2015 09:58:31 06/12/2015 11:48:37 Adult health examination 375733119 Z00.00 well visit Laboratory test 89435823 Z00.00 Essential hypertension 10002486 I10 advise pt to go home and restart his BP medication s as directed limit of salt start exercises Headache 06273107 R51 r/t lack of sleep take advil as needed for pain Insomnia 323121362 G47.0 0 start melatonin as directed Pain of ouer region 27041304 M25.511 sx improving continue advil as needed for pain unable to continue PT due to too experience continue shoulder exercises Diabetes m ellitus screening 359086641 Z13.1 [id number] YENNI HUIZAR [address] [address] 09/10/2015 08:55:26 09/10/2015 10:47:00 Essential hypertension 48413588 I10 well controlled continue same meds continue exercises and diet changes Headache 99048828 R51 r/t lack of sleep well controlled . no JOSEPH since pt able to sleep continue advil as needed for recurrs JOSEPH Insomnia 420983630 G47.0 0 well controlled continue same med Pain of [facility] [place] 19555612 M25.511 sx continue improving continue advil as needed for pain pt declined PT, will do the shoulder exercises at home, since he almost have complete FullROM Impaired g lucose tolerance 6983638 R73.02 check hgba1c today continue exercises and diet changes Hyperlipidemia 36161597 E78.5 check fasting lipid today continue exercises and diet changes [id number] Kem Davila MD [address] [address] 12/02/2015 15:47:26 12/02/2015 16:32:11 Dyslipidemia 060065804 E78.5 New dx of dyslipidem ia- Discussed importance of changing his diet- Encourage pt to start exercising - Start simvastati n- reassess in 3 months Essential hypertension 82536501 I10 HTN controlled - refill amlodipine [id number] Sj Lezama MD [address] [address] 03/03/2016 08:58:27 03/03/2016 09:36:14 Hyperlipidemia 27377299 E78.5 dietary modsrepeat labs [facility] 30041666 M25.512 exerciseac tivity as tolerated Prediabetes 119649773 R7 3.03 [id number] Kem Davila MD [address] [address] 08/18/2016 11:01:11 08/18/2016 14:39:56 Hyperlipidemia 74271879 E78.2 Dyslipidem ia, pt has stopped medication - Order CMP Essential hypertension 23592792 I10 HTN controlled - Stop amlodipine - Refill losartan 50mg po daily Paresthesia 29818321 R20 .2 Paresthesi as in hands and feet-Order Labs- reassess in 1 month Thoracic back pain 27101 8004 M54.6 Thoracic back pain likely from poor posture at work- Discussed remedies for improving posture- If no improvemen t in 1 month, referral to PT [id number] Kem Davila MD [address] [address] 09/15/2016 10:03:35 09/15/2016 10:56:19 Dyslipidemia 024213948 E78.5 Dyslipidem ia- Discussed importance of changing his diet- Encourage pt to start exercising - Continue simvastati n 20mg po daily- reassess in 3 months Essential hypertension 34520331 I10 HTN controlled - Decrease losartan 25mg po daily Bilateral carpal tunnel syndrome 2753381535 9059926 G56.03 bilateral carpal tunnel symptoms- Order carpal tunnel braces [id number] Kem Davila MD [facility] [address] [place] [address] 09/28/2016 10:33:56 09/28/2016 12:52:47 Generalized anxiety disorder 11863714 F41.1 PAIGE, pt has lots of anxiety- instructed to go to counselor- Hand out given Neuropathy 639033477 G62 .9 Ongoing peripheral neuropathy with HgbA1C of 6.2; normal CBC, normal Vit B- referral to neurology [id number] Kem Davila MD [facility] [address] [place] [address] 11/09/2016 10:42:06 11/09/2016 12:35:01 Paresthesia 71461259 R20.2 Paresthesi as in hands and feet being worked up by neurology- EMG to occur in the future- He declines treatment for paresthesi a at this time stating if EMG is normal he will just live sith symptoms Generalize d anxiety disorder 96868190 F41.1 PAIGE, pt is anxious and this drive him to focus on minor occurences and fear they are life threatenin g- Strongly encouraged pt to go to counselor- He does not want to start Cymbalta or any meds at this time [id number] Kem Davila MD [facility] [address] [place] [address] 03/16/2017 08:28:23 03/16/2017 09:31:33 Essential hypertension 12459049 I10 HTN controlled on medication - Continue losartan 25mg po daily Dyslipidemia 170830930 E 78.5 Dyslipidem ia, ASCVD risk of 3.5% in 10 years- Discussed importance of changing his diet- Encourage pt to start exercising - Stop simvastati n 20mg po daily- reassess in 3 months Active or passive immunization 700540468 Z23 Declines flu Epidermoid cyst of skin of back 438093486 L72.0 RIght upper back epidermoid cyst- reassuranc e given Mood disorder 39933481 F 39 Pt likely has anxiety due to focus on many minor issues. He is not ready to admit to his anxiety- encouraged pt to seek counseling in CBT [id number] Kem Davila MD [facility] [address] [place] [address] 04/13/2017 07:34:19 04/13/2017 09:29:51 Influenza vaccine needed 4502147931 106 Z23 Essential hypertension 30299387 I10 HTN controlled on medication , though pt reports elevation in the afternoon and with exposure to cold. Headaches may be due to cold air- Continue losartan 25mg po daily- pt to check BP BID and bring results in 7 weeks Headache 00886733 R51 Headache, possibly due to cold air or sinus issue- trial of nasal fluticason e [id number] Kem Davila MD [facility] [address] [place] [address] 06/01/2017 08:46:15 06/01/2017 11:21:46 Essential hypertension 86921901 I10 HTN controlled on medication ,- Continue losartan 25mg po daily- pt to check BP daily-DIsc ussed low sodium diet Headache 28710022 R51 Headache, possibly due to over use of computer and poor posture- discussed sitting up straight- Discussed use of heat pack and stretching - Encouraged pt to take breaks from screen to present eye strain [id number] Kem Davila MD [facility] [address] [place] [address] 07/17/2017 08:47:17 07/17/2017 11:00:27 Adult health examination 127773295 Z00.00 46 year old overweight (BMI 25.6) male with HTN- Discussed diet and exercise for health- Discussed advance care directive and HCP- Discussed ordering TDap but pt declined-N o cancer screening due at this time Laboratory test 29736179 Z00.00 Administra tion of diphtheria, pertussis, and tetanus vaccine 935206983 Z23 Glucose le braxton outside reference range 995741636 R73.09 Last HgbA1C of 6.2- recheck lipid panel, cmp and HgbA1C [id number] MD FANNY Glass [address] [place] [address] 05/16/2018 08:49:53 05/16/2018 10:09:59 Essential hypertension 07683287 I10 HTN, controlled - Refill losartan- Encouraged exercise on regular basis Dyslipidemia 735740301 E 78.2 Dyslipidem ia, ASCVD risk of 7.4% in 10 years- Refill atorvastat in 40mg po daily- Order lipid panel and CMP- reassess in 3 months Impaired g lucose tolerance 5781881 R73.03 last HgbA1C 5.7, down from 6.2- recheck HgbA1C Chest pain 56280763 R07. 9 47 year old male with hx of intermitte nt left chest discomfort without exertion. He has hx of dyslipidem ia with last LDL of 235, HTN and prediabete s (lab values are 1 year old and rechecking today). ASCVD risk is 7.4% in 10 years.- referral to cardiology to see if pt needs stress testing [id number] MD FAUSTINO [facility] [address] [place] [address] 08/15/2018 08:32:38 08/15/2018 10:31:10 Adult health examination 122586419 Z00.00 48 year old overweight (BMI 26.5) male with HTN- Discussed diet and exercise for health- Discussed advance care directive and HCP-No cancer screening due at this time Dyslipidemia 746480558 E 78.2 Dyslipidem ia, ASCVD risk of 7.4% in 10 years- Refill atorvastat in 40mg po daily- Order lipid panel and CMP- reassess in 6 months Increased body mass index 47287177 E66.3 BMI of 26.5, pt reports he has been inactive and eating more- will work on diet and exercising Body mass index 25-29 - overweight 825045821 Z68.26 Epidermoid cyst of skin of back 251593856 L72.0 RIght upper back epidermoid cyst- reassuranc e given HIV screening 293745552 Z11.4 screening for HIV [id number] Kem Davila MD [facility] [address] [place] [address] 11/26/2018 15:34:41 11/26/2018 16:57:23 Essential hypertension 30220756 I10 HTN, controlled - continue losartan- Encouraged exercise on regular basis Migraine with aura 45574 06 G43.109 Migraine vs tension vs sinus congestion causing headache- pt told to sleep more, drink fluids, get new glasses- can take excedrin for headache- trial of nasal fluticason e [id number] Queta Torres DO [facility] [address] [place] [address] 07/10/2019 10:26:30 07/10/2019 11:39:15 Adult health examination 590864158 Z00.00 Laboratory test 20170496 Z00.00 Prediabetes 854765772 R7 3.03 Essential hypertension 12559621 I10 Toothache 12062817 K08.8 9 [id number] Kem Davila MD [facility] [address] [place] [address] 09/20/2019 08:15:33 09/20/2019 12:34:10 Essential hypertension 51922081 I10 HTN, not controlled . at this time he has no symptoms, but he is stressed with big project deadline in 2 days- Increase losartan to 100mg po daily- recheck in 1 week- Encouraged exercise on regular basis [id number] Kem Davila MD [facility] [address] [place] [address] 09/27/2019 08:08:20 09/27/2019 09:53:49 Essential hypertension 08849957 I10 HTN, not controlled . at this time he has no symptoms. 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 at this time he has no symptoms.- Continue losartan to 100mg po daily- Continue amlodipine 2.5mg po daily- recheck in 4 week- Encouraged exercise on regular basis- Encouraged rest [id number] Kem Davila MD [facility] [address] [place] [address] 06/11/2020 10:52:31 06/11/2020 14:47:01 Essential hypertension 19658675 I10 HTN controlled with medication . 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 He has no cadiac symptoms - Refill atorvastat in 40mg po daily - Order lipid panel and CMP - reassess in 6 months [id number] Sj Lezama MD [address] [address] 03/02/2021 13:25:31 03/02/2021 17:06:45 Essential hypertension 96593201 I10 continue same Adult heal th examination 875135867 Z00.00 routine care Screening for malignant neoplasm of colon 120900036 Z12.11 discussed optionsagr ees to FIT tesetingki t given Laboratory test 32293009 Z00.00 results through portal Impaired g lucose tolerance 3870204 R73.03 check labs Administra tion of SARS-CoV-2 antigen vaccine 366430478 Z23 EUA sheet given. Reviewed with pt risk and benefits of the vaccine. Reviewed with pt possible local and systemic post vaccinatio n symptoms. Reviewed with post vaccinatio n s/s that warrant EMS Pt verbalized understand ing and agrees for the vaccine to be administer ed. Pt denies severe allergic reaction/a naphylacti c reaction to any vaccine given in the past. Pt denies status. Pt denies receiving any vaccine within the last 14 days. Pt denies receiving another covid vaccine elsewhere. Reviewed with pt when next dose of the vaccine is due. Pt verbalized understand ing and agrees with plan. ID verified. Allergies verified. State supply. Vaccine administer ed without incident. Pt monitored for 15 min post vaccine administra tion. Covid 19 Vaccinatio n record card given. [id number] Sj Lezama MD [address] [address] 03/11/2021 09:28:25 03/11/2021 14:21:59 Type 2 diabetes mellitus without complication 731731473 E11.9 discussed resultsinc luding A1C now in Diabetic rangemeds for diabetes not needed yetdiet and exercise controlled worsening kidney testingmus t maintain glucose and BPrefer to ocean freight manager thenrepeat labs in 3 months with follow up visit [id number] Sj Lezama MD [address] [address] 03/17/2021 13:50:06 03/17/2021 19:55:46 Type 2 diabetes mellitus without complication 755559652 E11.9 [id number] Sj Lezama MD [address] [address] 03/30/2021 17:05:58 04/13/2021 13:12:01 Administration of SARS-CoV-2 antigen vaccine 285334274 Z23 Pt presents today for Covid 19 vaccine #2. EUA sheet given. Reviewed with pt risk and benefits of the vaccine. Reviewed with pt possible local and systemic post vaccinatio n symptoms with Covid 19 vaccine #2. Reviewed with pt post vaccinatio n s/s that warrant EMS. Pt verbalized understand ing and agrees for the vaccine to be administer ed. Pt denies severe allergic reaction/a naphylacti c reaction to any vaccine given in the past. Pt denies receiving any vaccine within the last 14 days. Pt denies receiving another Covid vaccine elsewhere. Pt within time frame for Covid vaccine #2. Pt verbalized understand ing and agrees with plan. ID verified. Allergies verified. State supply. Vaccine administer ed without incident. Pt monitored for 15 min post vaccine administra tion. Covid 19 Vaccinatio n record card updated with Covid 19 vaccine #2. [id number] Sj Lezama MD [address] [address] 05/24/2021 12:50:59 05/24/2021 16:53:23 Type 2 diabetes mellitus 58436290 E11.9 reviewed improved T8Tajcuyiu e dietadvise d push fluidsBMP todayRTC 3 months [id number] Kem Davila MD [address] [address] 03/05/2022 09:44:28 03/05/2022 10:32:14 Type 2 diabetes mellitus 20063720 E11.9 DMT2, controlled with diet on last check- Order microalbum in and HgbA1C- encouraged exercise and limiting carbs in diet Dyslipidemia 387220117 E 78.5 Dyslipidem ia, ASCVD risk of 7.4% in 10 years. He has no cardiac symptoms - Refill atorvastat in 40mg po daily - Order lipid panel and CMP - reassess in 6 months Essential hypertension 23524358 I10 HTN controlled - Refill amlodipine 2.5mg po daily- Refill losartan 100mg po daily- Order CMP- Encouraged exercise and monitoring diet Influenza vaccine needed 2011650851 106 Z23 Declines flu vaccinatio n Administra tion of SARS-CoV-2 antigen vaccine 546322631 Z23 Declines booster [id number] Kem Davila MD [facility] [address] [place] [address] 06/16/2022 15:04:57 06/22/2022 12:36:06 Adult health examination 578930590 Z00.00 51 year old male with HTN- Discussed diet and exercise for health- Discussed advance care directive and HCP- Order FIT stool test for colon cancer screening Screening for malignant neoplasm of colon 783969711 Z12.11 Colon cancer screening- order FIT test Type 2 naveen betes mellitus 74075446 E11.9 DMT2, controlled with diet on last check- Order microalbum in and HgbA1C- DM eye exam form given for pt to have retina eye exam in [facility] d- encouraged exercise and limiting carbs in diet Essential hypertension 55476190 I10 HTN not controlled - Increase amlodipine to 5mg po daily- Refill losartan 100mg po daily- Order CMP- Encouraged exercise and monitoring diet Dyslipidemia 783523867 E 78.5 Dyslipidem ia, with diabetes ASCVD risk of 7.4% in 10 years. He has no cardiac symptoms - Refill atorvastat in 40mg po daily - Order lipid panel and CMP - reassess in 6 months Epidermoid cyst of skin 313646419 L72.0 Epidermoid cyst on right posterior shoulder- referral to general surgery Influenza vaccine needed 2853900392 106 Z23 Declines flu vaccinatio n Administra tion of SARS-CoV-2 antigen vaccine 849331328 Z23 Counseled patient on the importance of covid vaccinatio n. Discussed difference between mRNA vaccines and adenovirus vaccine. Discussed the benefits of vaccinatio n. Discussed potential side effects post vaccine and how to reduce side effects. Discussed how to reduce transmissi on of Covid and how to self isolate. Patient explained reasons for not getting vaccine. At the end, patient still vaccine hesistant and will decline Covid vaccinatio n. Administra tion of pneumococcal vaccine 50075895 Z23 Hx of DMT2. Pt dcliens pneumovax [id number] Kem Davila MD [facility] [address] [place] [address] 12/04/2023 17:13:17 12/04/2023 18:17:30 Adult health examination 827434169 Z00.00 53 year old male with HTN- Discussed diet and exercise for health- Discussed advance care directive and HCP- Order Cologuard test for colon cancer screening- he declines TDap- Screening for malignant neoplasm of colon 495440831 Z12.11 Colon cancer screening- order Cologuard test Essential hypertension 30478036 I10 HTN not controlled , but pt does not take all of medication s as prescribed - Continue amlodipine to 5mg po daily- Refill losartan 100mg po daily- Order CMP- Encouraged exercise and monitoring diet Dyslipidemia 954222257 E 78.5 Dyslipidem ia, with diabetes ASCVD risk of 7.4% in 10 years. He has no cardiac symptoms - Refill atorvastat in 40mg po daily - Order lipid panel and CMP - reassess in 6 months Type 2 naveen betes mellitus 59712269 E11.9 DMT2, controlled with diet on last check- Order microalbum in and HgbA1C- DM eye exam form given for pt to have retina eye exam in d- encouraged exercise and limiting carbs in diet Administra tion of diphtheria, pertussis, and tetanus vaccine 430026686 Z23 Pt declines TDap [id number] Kem Davila MD [facility] [address] [place] [address] 01/11/2024 07:43:24 01/12/2024 07:27:46 Essential hypertension 94427448 I10 HTN not controlled on visit but on review of previous BP record on machine he has more controlled BP so he may have mild white coat syndrome going on. But all BPs but one >130/80- Planned to increase amlodipine to 10mg po daily but pt would like to try lifestyle changes. he has- Will continue amlodipine 5mg daily- Continue losartan 100mg po daily- Encouraged pt to start exercise routine- He has started eating at home Proteinuria 18398427 R80 .9 proteinuri a in pt with diet controlled DMT2 and uncontroll ed HTN- reassess urine and urine protein [id number] MD FAUSTINO [facility] [address] [place] [address] 06/19/2024 16:03:16 06/19/2024 17:12:08 Essential hypertension 56169518 I10 HTN not controlled in office or at home- Will Increase amlodipine 10mg daily- Continue losartan 100mg po daily- Encouraged pt to start exercise routine- He has started eating at home Glucose le braxton outside reference range 230018811 R73.09 Last HgbA1C of 6.4- recheck lipid panel and HgbA1C Dyslipidemia 796485538 E 78.5 Dyslipidem ia, with diabetes ASCVD risk of 12.1% in 10 years. He has no cardiac symptoms - Refill atorvastat in 40mg po daily - Order lipid panel - reassess in 4 months Bone spur of left foot 4773132912 09872 M25.775 left heel pain for 1 year- Encouraged use of heel insert-ref erral to podiatry [id number] eKm Davila MD [facility] [address] [place] [address] 10/17/2024 07:19:15 10/17/2024 09:02:51 Essential hypertension 67708542 I10 57164 HTN controlled at home, but pt not consistent with lifestyle changes previously discussed- Refill amlodipine 10mg daily- Refill losartan 100mg po daily- Pt motivated to start exercising - Encouraged dietary changes Prediabetes 794540137 R7 3.03 R73.9 221813 last HgbA1C 5.7, down from 6.2- recheck HgbA1C Asymptomat ic proteinuria 274790566 R80.9 [id number] proteinuri a in pt with diet controlled DMT2 and uncontroll ed HTN- reassess urine protein Dyslipidemia 399496131 E 78.5 Dyslipidem ia, with diabetes ASCVD risk of 12.1% in 10 years. He has no cardiac symptoms - Refill atorvastat in 40mg po daily - Order lipid panel - reassess in 4 months [id number] Kem Davila MD [facility] [address] [place] [address] 02/11/2025 09:55:34 02/11/2025 11:31:39 Essential hypertension 65959541 I10 HTN not controlled but he controlled at home, but pt not consistent with lifestyle changes previously discussed- Refill amlodipine 10mg daily- Refill losartan 100mg po daily- start spironolac tone 25mg daily- Pt motivated to start exercising - Encouraged dietary changes Type 2 naveen betes mellitus 15435857 E11.29 R80.9 1078742377 DMT2, not controlled with last HgbA1C 7.3%. He also has proteinuri a (on ACEi)- start farxiga 10mg po daily for renal protection - DM eye exam form given for pt to have retina eye exam in d- referral to nephrologi st- encouraged exercise and limiting carbs in diet Health Concerns Section Related Observation LastModified by Organization Karely june LastModified Time None Recorded Concern Status LastModified by Organization Details LastModified Time None Recorded Advance Directives Directive N: Payers Insurance Date Sequence Insurance Name Policy Number Policy Bird Covered Member ID Bird Member ID Guarantor Name 06/16/2022 1 [employer] - DIRECT - [place] [employer] (HMO) [id number] Jeremiah Worley [id number] Jeremiah Worley 06/16/2022 1 [place] [id number] Jeremiah Worley [id number] Jeremiah Worley 03/27/2025 2 [employer] - [facility] (PPO) Jeremiah Worley [id number] Jeremiah Worley 01/08/[address] [facility] Jeremiah Worley [id number] Jeremiah Worley 03/27/2025 1 [facility] (O[facility] Jeremiah Worley [id number] Jeremiah Worley 06/16/2022 1 [employer] - MULTIPLAN (PPO) Jeremiah Worley [id number] Jeremiah Worley 07/10/2019 1 *SELF PAY* Jered Worley Notes Date Note Type Note Provider Name and Address Organization Details Recorded Time 12/04/2023 text/html Here for annual physical- States he is doing well-he lives in [facility] ([facility] he has increased pork intake and rice intake. states he is aware his diet is not as healthy-Pt sates he often forgets to take his amlodipine Kem Davila MD [address] [place] [address], [phone], [facility] 12/04/2023 21:10:07 01/11/2024 text/html Hypertension F/UReported by PatientHPIFor lifestyle, patient reportsnot exercising regularlybut reportslimiting/avoidi ng salt. For associated symptoms, patient reportsno dizziness,no lightheadedness,no chest pain,no shortness of breath,no palpitations,no edema, andno calf pain with exertion. For medications, patient reportstaking medications as directed (occasionally misses dose),no side effects from medication, andchecks blood pressure at home (range 117-140/76-90).pt state that home BPROS as noted in the HPI proteinuria- pt repots no change in diet, no increased urination, no LE edema Kem Davila MD [address] [place], [phone], [facility] 01/11/2024 17:29:40 06/19/2024 text/html Hypertension F/UReported by [facility] lifestyle, patient reportsnot exercising regularlybut reportslimiting/avoidi ng salt. For associated symptoms, patient reportsno dizziness,no lightheadedness,no chest pain,no shortness of breath,no palpitations,no edema, andno calf pain with exertion. For medications, patient reportstaking medications as directed,no side effects from medication, andchecks blood pressure at home (range 145-160/104). Left heel pain- ongoing for one year, on and off- states pain is worse when he eats food Kem Davila MD [address] [place], [phone], [facility] 06/19/2024 17:08:28 10/17/2024 text/html Hypertension F/UReported by [facility], patient reportsnot exercising regularlyandhigh salt intake. For associated symptoms, patient reportsno dizziness,no lightheadedness,no chest pain,no shortness of breath,no palpitations,no edema, andno calf pain with exertion. For medications, patient reportstaking medications as directed,no side effects from medication, andchecks blood pressure at home (range 135/92).BP today 135/92 prior 129/89 sleeping 4 hours daily- not exercising- not limiting his diet- no EtOH Proteinuria and prediabetes- no increased urination- Kem Davila MD [address] [place], [phone], [facility] 10/17/2024 08:50:31 02/11/2025 text/html Diabetes F/URepo rted by [facility] context, patient reportsno side effects from medications. For associated symptoms, patient reportsno weight gain,no weight loss,no dizziness,no sweats,no headaches,no confusion,no increased thirst,no increased appetite,no increased urination,no blurred vision,no numbness of feet, andno calluses on feet. Hypertension F/UReported by [facility] lifestyle, patient reportsnot exercising regularlyandhigh salt intake. For associated symptoms, patient reportsno dizziness,no lightheadedness,no chest pain,no shortness of breath,no palpitations,no edema, andno calf pain with exertion. For medications, patient reportstaking medications as directedandno side effects from medication.ROS as noted in the HPI Kem Davila MD [address] [place] [address], [phone], [facility] 03/05/2025 09:32:52
--- OUTSIDE RECORDS SUMMARY | 2025-04-03 19:20 | XMS_ITS | Clinical Summary ---
Author Organization [facility] Address [address] [place] [phone] Phone Care Team Providers Care Deck Worker Name Role Phone Pcp, Not Required Primary Care Provider Unavaila ble Social History Tobacco Use Types Packs/Day Years Used Date Smoking Tobacco: Never Assessed Education Answer Date Recorded Are you interested in more education? Not on betina e 09/09/2022 Are you concerned about learning? Not on file 09/09/2022 No 09/09/2022 No 09/09/2022 Digital Access Answer Date Recorded No 10/10/2022 No 10/10/2022 No 10/10/2022 Reliable internet access at home? Not on file 10/10/2022 Device with a working camera? Not on file Sex and Gender Information Value Date Recorded Sex Assigned at Not on file Legal Sex Male 2:08 PM EDT Gender Identity Not on file Sexual Orientation Not on file Plan of Treatment Health Maintenance Due Date Last Done Comments Adult Td,Tdap Booster 1970 LIPID PANEL 1970 DEPRESSION SCREENING 1982 SMOKING Hx and SMOKELESS TOBACCO SCREENING 07/19/1983 HEPATITIS C SCREENING 1988 HIV ONE-TIME SCREENING (18-6 5 YEARS) 1988 COLOGUARD 07/19/2015 COLONOSCOPY 07/19/2015 COLORECTAL CANCER SCREENING 07/19/2015 FIT TEST 07/19/2015 FOBT 07/19/2015 SIGMOIDOSCOPY 07/19/2015 VIRTUAL COLONOSCOPY 07/19/2015 PNEUMOCOCCAL VACCINES (50+ years) (1 of 1 - PCV) 2020 ZOSTER VACCINES (1 of 2) 2020 INFLUENZA VACCINE (#1) 2024 7, 01/29/2016 COVID-19 VACCINE (2 - 2024-2 6 season) 2025 03/02/2021 RSV VACCINE (1 - 1-dose 75+ series) 2045 HEPATITIS A VACCINES Aged Out No long er eligible based on patient's age to complete this topic HIB VACCINES Aged Out No longer eligi ble based on patient's age to complete this topic MENINGOCOCCAL VACCINES (ACWY) Aged Out No longer eligible based on patient's age to complete this topic MENINGOCOCCAL VACCINES (B) Aged Out N o longer eligible based on patient's age to complete this topic Medical Devices Not on file Insurance PPO EPO PPO EPO [facility] PPO EPO [facility] PPO EPO PPO EPO PPO EPO PPO EPO Care Teams Deck Worker Relationship Specialty Start Date End Date Pcp, Not Required [address] [place] [address] PCP - General 11/02/16 Additional Source Comments The information contained in this document represents components of the legal health record. It is not the complete legal health record.[facility]
--- OUTSIDE RECORDS SUMMARY | 2025-04-03 19:20 | XMS_ITS | Continuity of Care Document ---
Author Organization [facility], [facility] [place] [address] [place] [address] Assessment No assessment recorded. Plan of Treatment Reminders Order Date Submit Date Provider Last Modified By Organization Details Last Modified Time Details Appointments Physical Exam 2024 03:45P M Kem Davila MD Not available Not available Not available Lab None recorded. Referral nephrolog ist referral - 54 year old male with DMT2, proteinur ia, HTN, and CKD stage 3. please evaluate 2024 025 ZHENG Banks MD, [address] [place] [address] Blayne [place], [place], [address], 03/27/2025 10:29:28 Procedures None recorded. Surgeries None recorded. Imaging None recorded. Medication Orders Farxiga 10 mg tablet 2024 025 [facility] #[id number], [address] [place], [address], 02/11/2025 11:14:11 amlodipin e 10 mg tablet 2024 025 [facility] #[id number], [address] [place], [address], 02/11/2025 11:14:13 losartan 100 mg tablet 2024 025 [facility] #[id number], [address] [place], [address], 02/11/2025 11:14:12 spironola ctone 25 mg tablet 2024 025 [facility] #[id number], [address] [place], [address], 02/11/2025 11:17:23 Patient TargetsNo targets recorded. Patient Instructions Encounter Date Encounter Id Patient Instructions Last Modified By Organization Details Last Modified Time 02/11/2025 [id number] Risks and benefits of medication(s) discussed with patient. Patient verbalized understanding. 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 please evaluate Referring Physician: Kem Davila, Family Medicine, Encounter Date: 02/11/2025 Results Created Date Observation Date Name Description Value Unit Range Abnormal Flag Note LastModifiedBy Organization Detail LastModifiedTime 01/25/2001/25/2025 LIPID PANEL WITH REFLE X TO DIREC T LDL cholesterol, total 164 mg/dL <200 normal Not Available [facility] [address], [address], 01/25/2025 21:25:14 01/25/2001/25/2025 LIPID PANEL WITH REFLE X TO DIREC T LDL HDL cholesterol 44 mg/dL > or = 40 normal Not Available [facility] [address], [address], 01/25/2025 21:25:14 01/25/2001/25/2025 LIPID PANEL WITH REFLE X TO DIREC T LDL triglyceride s 116 mg/dL <150 normal Not Available [facility] [address], [address], 01/25/2025 21:25:14 01/25/20 25 01/25/2025 LIPID PANEL [...] a valid ated novel metho d provi ding gayathri r accur acy than the Fried nubia equat ion in the estim ation of LDL-C . Elissa swartz SS et al. EMY. 2013; 310(1 9): 2061- 2068 (http ://ed ucati on.Qu estInfinite Power Solutions. [employer]/f aq/FA Q164) Not Available [facility] [address], [place], [address], 01/25/2025 21:25:14 01/25/20 25 01/25/2025 LIPID PANEL WITH REFLE X TO DIREC T LDL chol/HDLC ratio 3.7 (calc ) <5.0 normal Not Available [facility] [address], [place], [address], 01/25/2025 21:25:14 01/25/2001/25/2025 LIPID PANEL WITH REFLE X TO DIREC T LDL non HDL cholesterol 120 mg/dL _(emma c) <130 normal For patie nts with diabe malia plus 1 major ASCVD risk facto r, treat ing to a non-H DL-C goal of <100 mg/dL (LDL- C of <70 mg/dL ) is consi dered a thera peuti c optio n. Not Available [facility] [address], [place], [address], 01/25/2025 21:25:14 01/25/20 25 01/25/2025 ALBUM IN, RANDO M URINE W/CRE ATINI NE creatinine, random urine 134 mg/dL 20-320 normal Not Available [facility] [address], [place], [address], 01/25/2025 21:25:14 01/25/2001/25/2025 ALBUM IN, RANDO M URINE W/CRE ATINI NE albumin, urine 75.3 mg/dL see note: normal Refer ence Range : Refer ence Range Not estab lishe d Verif ied by repea t wilton sis. Not Available [facility] [address], [address], 01/25/2025 21:25:14 01/25/20 25 01/25/2025 ALBUM IN, [...] a diagn ostic categ ory. Not Available [facility] [address], [address], 01/25/2025 21:25:14 01/25/2001/25/2025 COMPR EHENS MAGDALENA METAB OLIC PANEL glucose 111 mg/dL 65-139 normal Non-f astin g refer ence inter nahum Not Available [facility] [address], [place], [address], 01/25/2025 21:25:15 01/25/2001/25/2025 COMPR EHENS MAGDALENA METAB OLIC PANEL urea nitrogen (BUN) 23 mg/dL 7-25 normal Not Available [facility] [address], [address], 01/25/2025 21:25:15 01/25/20 25 01/25/2025 COMPR EHENS MAGDALENA METAB OLIC PANEL creatinine 1.57 mg/dL 0.70-1 .30 high Not Available [facility] [address], [place], [address], 01/25/2025 21:25:15 01/25/20 25 01/25/2025 COMPR EHENS MAGDALENA METAB OLIC PANEL eGFR 52 mL/mi n/1.7 3m2 > or = 60 low Not Available [facility] [address], [place], [address], 01/25/2025 21:25:15 01/25/20 25 01/25/2025 COMPR EHENS MAGDALENA METAB OLIC PANEL BUN/creatini ne ratio 15 (calc ) 6-22 normal Not Available [facility] [address], [place], [address], 01/25/2025 21:25:15 01/25/20 25 01/25/2025 COMPR EHENS MAGDALENA METAB OLIC PANEL sodium 140 mmol/ L 135-14 6 normal Not Available [facility] [address], [place], [address], 01/25/2025 21:25:15 01/25/20 25 01/25/2025 COMPR EHENS MAGDALENA METAB OLIC PANEL potassium 3.7 mmol/ L 3.5-5. 3 normal Not Available [facility] [address], [place], [address], 01/25/2025 21:25:15 01/25/20 25 01/25/2025 COMPR EHENS MAGDALENA METAB OLIC PANEL chloride 107 mmol/ L 98-110 normal Not Available [facility] [address], [place], [address], 01/25/2025 21:25:15 01/25/20 25 01/25/2025 COMPR EHENS MAGDALENA METAB OLIC PANEL carbon dioxide 24 mmol/ L 20-32 normal Not Available [facility] [address], [place], [address], 01/25/2025 21:25:15 01/25/20 25 01/25/2025 COMPR EHENS MAGDALENA METAB OLIC PANEL calcium 8.9 mg/dL 8.6-10 .3 normal Not Available [facility] [address], [place], [address], 01/25/2025 21:25:15 01/25/20 25 01/25/2025 COMPR EHENS MAGDALENA METAB OLIC PANEL protein, total 6.5 g/dL 6.1-8. 1 normal Not Available [facility] [address], [place], [address], 01/25/2025 21:25:15 01/25/20 25 01/25/2025 COMPR EHENS MAGDALENA METAB OLIC PANEL albumin 4.3 g/dL 3.6-5. 1 normal Not Available [facility] [address], [place], [address], 01/25/2025 21:25:15 01/25/20 25 01/25/2025 COMPR EHENS MAGDALENA METAB OLIC PANEL globulin 2.2 g/dL_ (calc ) 1.9-3. 7 normal Not Available [facility] [address], [place], [address], 01/25/2025 21:25:15 01/25/20 25 01/25/2025 COMPR EHENS MAGDALENA METAB OLIC PANEL albumin/glob ulin ratio 2.0 (calc ) 1.0-2. 5 normal Not Available [facility] [address], [place], [address], 01/25/2025 21:25:15 01/25/20 25 01/25/2025 COMPR EHENS MAGDALENA METAB OLIC PANEL bilirubin, total 0.7 mg/dL 0.2-1. 2 normal Not Available [facility] [address], [place], [address], 01/25/2025 21:25:15 01/25/20 25 01/25/2025 COMPR EHENS MAGDALENA METAB OLIC PANEL alkaline phosphatase 78 U/L 35-144 normal Not Available [facility] [address], [place], [address], 01/25/2025 21:25:15 01/25/20 25 01/25/2025 COMPR EHENS MAGDALENA METAB OLIC PANEL AST 23 U/L 10-35 normal Not Available [facility] [address], [place], [address], 01/25/2025 21:25:15 01/25/20 25 01/25/2025 COMPR EHENS MAGDALENA METAB OLIC PANEL ALT 40 U/L 9-46 normal Not Available [facility] [address], [place], [address], 01/25/2025 21:25:15 01/25/2001/25/2025 HEMOG LOBIN A1C hemoglobin [...] Curre ntly, no conse nsus exist s radhames mckeon use of hemog lobin A1c for diagn osis of diabe malia for child ivania. Not Available [facility] [address] [place], [place], [address], 01/25/2025 21:25:15 Result Notes None recorded. Problems Name Problem SNOMED Code Status Onset Date Resolution Date Notes Provider Name and Address Organization Details Recorded Time Essential hypertensio n 82627310 Active Kem Davila MD [address] [place] [address], [address], [facility] 2 10:15:35 Headache 65764391 [facility] 6 19:57:12 Insomnia 768975728 Active [facility] 6 19:57:12 Pain of shoulder region 28556904 Active [facility] 6 19:57:12 Impaired glucose tolerance 4960089 Active Karl Ci Li [facility] 6 19:57:12 Hyperlipide brit 90561927 Completed 05/16/2018 Kem Davila MD [address] [place] [address], [address], [facility] 9 09:30:10 Dyslipidemi a 231850782 Active 2018 Kem Davila MD [address] [place] [address], [address], [facility] 2 10:15:29 Type 2 diabetes mellitus 10904710 Active 2020 Kem Davila MD [address] [place] [address], [address], [facility] 5 11:01:53 Problem Notes None recorded. Procedures Surgical History Date Name Laterality Status Provider Name and Address Organization Details Recorded Time 5 Diabetic Foot Exam completed Kem Davila MD [address] [place], [address], [facility] 03/05/2025 09:30:45 4 Diabetic Foot Exam completed Kem Davila [place] [address] [place], [address], [facility] 12/04/2023 18:10:26 1 DSMT/s Assessment / Education [...] Details Last Updated DateTime 5 167.01 cm 26.4 kg/m2 64120.7 1 g 96 [degF] 73 /min 99 % 153/93 mm[Hg] 156/95 mm[Hg] Faina Castro [facility] 5 10:44:38 Social History Question Answer Notes LastModified by Organization Details LastModified Time Tobacco Smoking Status Never Smoker Elo Lozano [facility] 03/05/2022 09:57:10 Do You Have An Advance Directive? No [email or web address] Information not available 12/04/2023 What Is Your Level Of Caffeine Consumption? Occasional Tea Sometimes Information not available 06/12/2015 How Much Tobacco Do You Chew? None Information not available 06/12/2015 In The 14 Days Before Symptom Onset, Have You Had Close Contact With A Laboratory-confir med COVID-19 While That Case Was Ill? No [email or web address] Information not available 06/11/2020 In The 14 Days Before Symptom Onset, Have You Had Close Contact With A Person Who Is Under Investigation For COVID-19 While That Person Was Ill? No [email or web address] Information not available 06/11/2020 Have You Been To An Area Known To Be High Risk For COVID-19? No [email or web address] Information not available 06/11/2020 What Type Of Diet Are You Following? REGULAR Eats Chicken Only Information not available 06/12/2015 Education 4 Year College Informatio n not available 06/12/2015 Who Is Your Employer? [employer] Information not available 12/04/2023 Have There Been Any Changes To Your Family Or Social Situation? No Information not available 12/04/2023 Are There Any Guns Present In Your Home? No Information not available 06/12/2015 Hard Of Hearing Or Deaf In One Or Both Ears? No [email or web address] Information not available 05/19/2015 Legally Blind In One Or Both Eyes? No [email or web address] Information not available 05/19/2015 Live Alone Or With Others? With Others Information not available 06/12/2015 Homeless Not Homeless [email or web address] Information not available 08/15/2018 In The Past Month, Was There Any Day When You Or Someone In Your Family Went Hungry Because You Didn't Have Money For Food? No [email or web address] Information not available 08/15/2018 Do You Need Help Finding Clothing Or Other Supplies For Yourself Or For Your Children? No [email or web address] Information not available 08/15/2018 Do You Need Medicine But Cannot Buy It Because It Is Too Expensive? No Information not available 08/15/2018 Do You Need Transportation To Medical Appointments? No [email or web address] Information not available 08/15/2018 Do You Worry That You Can't Pay Your Utility Bill(s)? (electric, Gas, Heating Oil, Telephone) No [email or web address] Information not available 03/05/2022 Do You Prefer To Learn By: Verbal Communication [email or web address] Information not available 08/15/2018 Do You Have Any Of The Following Barriers To Learn: None Of The Above [email or web address] Information not available 08/15/2018 Last SDIN Completion Date 02/11/2025 Information not available 02/11/2025 [...] Or Bleeding Gums When You Eat Or Osage Your Teeth? No Information not available 12/04/2023 Has Anyone In The Immediate Family (including A Caregiver) Had Tooth Decay Or Lost A Tooth From Tooth Decay In The Past Year? (Yes Indicates Positive Result) No Information not available 12/04/2023 On Average, How Many Days Per Week Do You Osage Your Teeth For At Least Two Minutes, [...] 12/04/2023 What Is Your Relationship Status? In [facility], > 20 Years Information not available 12/04/2023 Do You Use Your Seat Belt Or Car Seat Routinely? Yes Information not available 06/12/2015 Are You Sexually Active? No Information not available 06/12/2015 Do You Have Smoke And Carbon Monoxide Detectors In Your Home? Yes Information not available 06/12/2015 How Much Tobacco Do You Smoke? No [email or web address] Information not available 05/19/2015 Do You Use [...] other forms of tobacco or nicotine? No [email or web address] Information not available 03/05/2022 What is your level of alcohol consumption? None [email or web address] Information not available 12/02/2015 Are you currently employed? Yes Information not available 06/12/2015 Do you have transportation difficulties? No Information not available 12/04/2023 Are you able to care for yourself independently? 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 None recommend pt exercise Information not available 06/12/2015 Mental Status None recorded. Family History Relationship Description Onset Age of this Age Resolved Age Notes LastModified by Organization Details LastModified Time Mother Hypertensive disorder qli Not available 2015 19:51:32 Father Hypertensive disorder qli Not available 2015 19:51:32 Father Kidney disease on dialys is [email or web address] Not available 07/17/2017 09:51:53 Notes:Colon Cancer: None [...] cancelled patient objection Not Available [facility] 06/01/2019 02:13:16 Influenza, split virus, quadrivalent, PF 017 completed Not Available [facility] 06/01/2019 02:13:15 Tdap 018 cancelled patient objection Not Available [facility] 06/01/2019 02:13:28 Influenza, high-dose, trivalent, PF 016 completed Sammie Caceres [facility] 03/03/2016 09:18:24 COVID-19, mRNA, LNP-S, PF, 30 mcg/0.3 mL dose 021 completed Faina Linder RN [facility] 03/30/2021 18:07:45 Influenza, split virus, quadrivalent, PF 022 cancelled patient objection Kem Davila MD [address] [place], [address], [facility] 03/07/2022 20:23:15 COVID-19, mRNA, LNP-S, bivalent, PF, 50 mcg/0.5 mL or 25mcg/0.25 mL dose 022 cancelled patient objection Kem Davila MD [address] [place], [address], [facility] 03/07/2022 20:23:15 Influenza, split virus, quadrivalent, PF 023 cancelled patient objection Kem Davila MD [address] [place] [address], , [facility] 06/20/2022 13:00:54 COVID-19, mRNA, LNP-S, bivalent, PF, 50 mcg/0.5 mL or 25mcg/0.25 mL dose 023 cancelled patient objection Kem Davila MD [address] [place] [address], , [facility] 06/20/2022 13:00:54 pneumococcal polysaccharide PPV23 023 cancelled patient objection Kem Davila MD [address] [place] [address], , [facility] 06/20/2022 13:00:54 Tdap 024 cancelled patient objection Kem Davila MD [address] [place] [address], , [facility] 12/04/2023 21:03:22 COVID-19, mRNA, LNP-S, PF, 30 mcg/0.3 mL dose 021 [facility] 17:32:00 Past Encounters Encounter ID Performer Location Encounter Start Date Encounter Closed Date Diagnosis/Indication Diagnosis SNOMED-CT Code Diagnosis ICD10 Code Diagnosis IMO Codes Diagnosis Note [id number] Kem Davila MD [facility] [address] [place] [address] 02/11/2025 09:55:34 02/11/2025 11:31:39 Essential hypertension 98103713 I10 HTN not controlled but he controlled at home, but pt not consistent with lifestyle changes previously discussed- Refill amlodipine 10mg daily- Refill losartan 100mg po daily- start spironolac tone 25mg daily- Pt motivated to start exercising - Encouraged dietary changes Type 2 naveen betes mellitus 63478402 E11.29 R80.9 4113053493 DMT2, not controlled with last HgbA1C 7.3%. He also has proteinuri a (on ACEi)- start farxiga 10mg po daily for renal protection - DM eye exam form given for pt to have retina eye exam in d- referral to nephrologi st- encouraged exercise and limiting carbs in diet Health Concerns Section Related Observation LastModified by Organization Detai ls LastModified Time None Recorded Concern Status LastModified by Organization Details LastModified Time None Recorded Payers Encounter Date Sequence Insurance Name Policy Number Policy Bird Covered Member ID Bird Member ID Guarantor Name 02/11/2025 2 [employer] - [facility] ([facility]) Jeremiah Worley [id number] Jeremiah Worley 02/11/2025 1 [facility] [place] [place] Jeremiah Worley [id number] Jeremiah Worley Notes Date Note Type Note Provider Name and Address Organization Details Recorded Time 02/11/2025 text/html Diabetes F/URepo rted by PatientHPIFor context, patient reportsno side effects from medications. For associated symptoms, patient reportsno weight gain,no weight loss,no dizziness,no sweats,no headaches,no confusion,no increased thirst,no increased appetite,no increased urination,no blurred vision,no numbness of feet, andno calluses on feet. Hypertension F/UReported by PatientHPIFor lifestyle, patient reportsnot exercising regularlyandhigh salt intake. For associated symptoms, patient reportsno dizziness,no lightheadedness,no chest pain,no shortness of breath,no palpitations,no edema, andno calf pain with exertion. For medications, patient reportstaking medications as directedandno side effects from medication.ROS as noted in the HPI Kem Davila MD [address] [place], [address], [facility] 03/05/2025 09:32:52
== END 2025-04-03 14:22 | disposition home or self-care (01) ==
LOC: HO.HKA 13:54
PROVIDERS: Visit Provider Internal Medicine Hypertension Specialist
DX: I12.9 Hypertensive chronic kidney disease with stage 1 through stage 4 chronic kidney disease, or unspecified chronic kidney disease (principal); N18.9 Chronic kidney disease, unspecified
CPT/HCPCS: 99204

== ENCOUNTER 2025-04-23 15:36 | Outpatient (REF) | payer OTHER, SELFPAY ==
--- NOTE | ~2025-04-23 | US_ITS ---
EXAMINATION: US RETROPERITONEAL LIMITED (RENAL ONLY) CLINICAL INFORMATION: Chronic kidney disease. COMPARISON: None available. TECHNIQUE: Real-time imaging of the kidneys. FINDINGS: RIGHT KIDNEY: 10.8 x 4.7 x 5 x 1 cm (SAG x AP x TRV). The kidney is normal in size, contour, and echogenicity. Renal cortical thickness is normal. No calculi or suspicious focal parenchymal lesions. No hydronephrosis. There is a lower pole exophytic cyst measuring 0.7 x 0.6 x 0.7 cm. LEFT KIDNEY: 10.3 x 4.4 x 3.9 cm (SAG x AP x TRV). The kidney is normal in size, contour, and echogenicity. Renal cortical thickness is normal. No calculi or suspicious focal parenchymal lesions. No hydronephrosis. There is an mid to upper pole large dumbbell shaped cyst measuring 9.1 x 5.4 x 5.9 cm. US/US renal BI IMPRESSION: 1. Large cyst in the mid to upper pole left kidney. Tiny cyst in the lower pole left kidney. 2. Kidneys are otherwise normal without hydronephrosis, mass, or calculi. Electronically signed by: Hunter Dugan MD 04/23/2025 04:46 PM EST
[2025-04-23 17:11] LABS: Hematocrit 46.1 % (42.0-52.0); Hemoglobin 15.7 g/dl (14.0-18.0); Mean Corpuscular HGB Conc 34.1 g/dl (31.0-36.0); Mean Corpuscular Hemoglobin 29.0 pg (27.0-33.0); Mean Corpuscular Volume 85.2 fL (80.0-98.0); NRBC Abs Auto 0.000 X10*3/uL (0.0-0.012); NRBC Pct Auto 0.0 /100WBC (0.0-0.2); Platelet Count 239 X10*3/uL (160-400); Red Blood Count 5.41 X10*6/uL (4.60-5.80); White Blood Count 9.0 X10*3/uL (4.8-10.8)
[2025-04-23 17:34] LABS: Alanine Aminotransferase 39 U/L (0-40); Albumin Level 5.1 g/dL (3.5-5.0); Alkaline Phosphatase 96 U/L (39-117); Anion Gap 11 (12-20); Aspartate Amino Transferase 28 U/L (5-37); Blood Urea Nitrogen 19 mg/dL (9-16); Calcium 9.3 mg/dL (8.4-10.2); Carbon Dioxide 23 mmol/L (22-29); Chloride 110 mmol/L (96-108); Estimated Glomerular Filt Rate 46; Potassium 4.0 mmol/L (3.3-5.1); Sodium 140 mmol/L (135-145); Total Protein 7.8 g/dL (6.5-8.0)
[2025-04-23 17:36] LABS: Appearance Urine Clear; Glucose Urine UA 500 mg/dL (Negative); PH 5.5 (5.0-9.0); Specific Gravity - Urine 1.010 (1.005-1.025); UMIC TRIGGER UA YES
[2025-04-23 17:37] LABS: Parathyroid Hormone Intact 137.4 pg/mL (8.7-77.1)
[2025-04-23 19:31] LABS: Total Protein Urine Random 35 mg/dL (<12)
--- OUTSIDE RECORDS SUMMARY | 2025-04-24 00:18 | XMS_ITS | Clinical Summary ---
Author Organization [facility] Address [address] [place] [id number] Phone Care Team Providers Care Medical Insurance Biller Name Role Phone Pcp, Not Required Primary [...] on file Insurance PPO EPO PPO EPO [facility] PPO EPO [facility] PPO EPO PPO EPO PPO EPO PPO EPO Care Teams Medical Insurance Biller Relationship Specialty Start Date End Date Pcp, Not Required PCP - General 11/02/16 Additional Source Comments The information contained in this document represents components of the legal health record. It is not the complete legal health record.[facility]
--- OUTSIDE RECORDS SUMMARY | 2025-04-24 00:18 | XMS_ITS | Continuity of Care Document ---
Author Organization [facility], [facility] Address [address] [place] [address] Assessment No assessment recorded. Plan of Treatment Reminders Order Date Submit Date Provider Last Modified By Organization Details Last Modified Time Details Appointments Physical Exam 2024 03:45P M Kem Davila MD Not available Not available Not available Lab None recorded. Referral nephrolog ist referral - 54 year old male with DMT2, proteinur ia, HTN, and CKD stage 3. please evaluate 2024 025 [id number] Sunday Banks MD, [address] [place] [address] Blayne Guthrie, [place], [address], 04/04/2025 11:25:24 Procedures None recorded. Surgeries None recorded. Imaging None recorded. Medication Orders Farxiga 10 mg tablet 2024 025 [facility] #[id number], [address] [place], [address], 02/11/2025 11:14:11 amlodipin e 10 mg tablet 2024 025 [facility] #[id number], [address] [place], [address], 02/11/2025 11:14:13 losartan 100 mg tablet 2024 025 [facility] #[id number], [address] [place], [address], 02/11/2025 11:14:12 spironola ctone 25 mg tablet 2024 025 [facility] #[id number], [address] [place], [address], 02/11/2025 11:17:23 Patient TargetsNo targets recorded. Patient Instructions Encounter Date Encounter Id Patient Instructions Last Modified By Organization Details Last Modified Time 02/11/2025 [id number] Risks and benefits of medication(s) discussed with patient. Patient verbalized understanding. [email or web address] Not available 03/05/2025 09:31:54 Reason for Referral Nursing Education Specialist Referral for Ty pe 2 diabetes mellitus [...] total 164 mg/dL <200 normal Not Available [facility] [address], [address], 01/25/2025 21:25:14 01/25/2001/25/2025 LIPID PANEL WITH REFLE X TO DIREC T LDL HDL cholesterol 44 mg/dL > or = 40 normal Not Available [facility] [address], [address], 01/25/2025 21:25:14 01/25/2001/25/2025 LIPID PANEL WITH REFLE X TO DIREC T LDL triglyceride s 116 mg/dL <150 normal Not Available [email or web address] [address], [address], 01/25/2025 21:25:14 01/25/20 25 01/25/2025 LIPID PANEL [...] 9): 2061- 2068 (http ://ed ucati on.Qu estStartupMojo. Telestream/f aq/FA Q164) Not Available [facility] [address], [place], [address], 01/25/2025 21:25:14 01/25/20 25 01/25/2025 LIPID PANEL WITH REFLE X TO DIREC T LDL chol/HDLC ratio 3.7 (calc ) <5.0 normal Not Available [facility] [address], [place], [address], 01/25/2025 21:25:14 01/25/2001/25/2025 LIPID PANEL WITH REFLE X TO DIREC T LDL non HDL cholesterol 120 mg/dL _(emma c) <130 normal For patie nts with diabe malia plus 1 major ASCVD risk facto r, treat ing to a non-H DL-C goal of <100 mg/dL (LDL- C of <70 mg/dL ) is consi dered a thera peuti c optio n. Not Available [facility] [address], [place], [address], 01/25/2025 21:25:14 01/25/20 25 01/25/2025 ALBUM IN, RANDO M URINE W/CRE ATINI NE creatinine, random urine 134 mg/dL 20-320 normal Not Available [facility] [address], [place], [address], 01/25/2025 21:25:14 01/25/2001/25/2025 ALBUM IN, RANDO M URINE W/CRE ATINI NE albumin, urine 75.3 mg/dL see note: normal Refer ence Range : Refer ence Range Not estab lishe d Verif ied by repea t wilton sis. Not Available [facility] [address], [address], 01/25/2025 21:25:14 01/25/20 25 01/25/2025 ALBUM IN, [...] ostic categ ory. Not Available [facility] [address], [address], 01/25/2025 21:25:14 01/25/2001/25/2025 COMPR EHENS MAGDALENA METAB OLIC PANEL glucose 111 mg/dL 65-139 normal Non-f astin g refer ence inter nahum Not Available [facility] [address], [place], [address], 01/25/2025 21:25:15 01/25/2001/25/2025 COMPR EHENS MAGDALENA METAB OLIC PANEL urea nitrogen (BUN) 23 mg/dL 7-25 normal Not Available [facility] [address], [address], 01/25/2025 21:25:15 01/25/20 25 01/25/2025 COMPR EHENS MAGDALENA METAB OLIC PANEL creatinine 1.57 mg/dL 0.70-1 .30 high Not Available [facility] [address], [place], [address], 01/25/2025 21:25:15 01/25/20 25 01/25/2025 COMPR EHENS MAGDALENA METAB OLIC PANEL eGFR 52 mL/mi n/1.7 3m2 > or = 60 low Not Available [facility] [address], [place], [address], 01/25/2025 21:25:15 01/25/20 25 01/25/2025 COMPR EHENS MAGDALENA METAB OLIC PANEL BUN/creatini ne ratio 15 (calc ) 6-22 normal Not Available [facility] [address], [place], [address], 01/25/2025 21:25:15 01/25/20 25 01/25/2025 COMPR EHENS MAGDALENA METAB OLIC PANEL sodium 140 mmol/ L 135-14 6 normal Not Available [facility] [address], [place], [address], 01/25/2025 21:25:15 01/25/20 25 01/25/2025 COMPR EHENS MAGDALENA METAB OLIC PANEL potassium 3.7 mmol/ L 3.5-5. 3 normal Not Available [facility] [address], [place], [address], 01/25/2025 21:25:15 01/25/20 25 01/25/2025 COMPR EHENS MAGDALENA METAB OLIC PANEL chloride 107 mmol/ L 98-110 normal Not Available [facility] [address], [place], [address], 01/25/2025 21:25:15 01/25/20 25 01/25/2025 COMPR EHENS MAGDALENA METAB OLIC PANEL carbon dioxide 24 mmol/ L 20-32 normal Not Available [facility] [address], [place], [address], 01/25/2025 21:25:15 01/25/20 25 01/25/2025 COMPR EHENS MAGDALENA METAB OLIC PANEL calcium 8.9 mg/dL 8.6-10 .3 normal Not Available [facility] [address], [place], [address], 01/25/2025 21:25:15 01/25/20 25 01/25/2025 COMPR EHENS MAGDALENA METAB OLIC PANEL protein, total 6.5 g/dL 6.1-8. 1 normal Not Available [facility] [address], [place], [address], 01/25/2025 21:25:15 01/25/20 25 01/25/2025 COMPR EHENS MAGDALENA METAB OLIC PANEL albumin 4.3 g/dL 3.6-5. 1 normal Not Available [facility] [address], [place], [address], 01/25/2025 21:25:15 01/25/20 25 01/25/2025 COMPR EHENS MAGDALENA METAB OLIC PANEL globulin 2.2 g/dL_ (calc ) 1.9-3. 7 normal Not Available [facility] [address], [place], [address], 01/25/2025 21:25:15 01/25/20 25 01/25/2025 COMPR EHENS MAGDALENA METAB OLIC PANEL albumin/glob ulin ratio 2.0 (calc ) 1.0-2. 5 normal Not Available [facility] [address], [place], [address], 01/25/2025 21:25:15 01/25/20 25 01/25/2025 COMPR EHENS MAGDALENA METAB OLIC PANEL bilirubin, total 0.7 mg/dL 0.2-1. 2 normal Not Available [facility] [address], [place], [address], 01/25/2025 21:25:15 01/25/20 25 01/25/2025 COMPR EHENS MAGDALENA METAB OLIC PANEL alkaline phosphatase 78 U/L 35-144 normal Not Available [facility] [address], [place], [address], 01/25/2025 21:25:15 01/25/20 25 01/25/2025 COMPR EHENS MAGDALENA METAB OLIC PANEL AST 23 U/L 10-35 normal Not Available [facility] [address], [place], [address], 01/25/2025 21:25:15 01/25/20 25 01/25/2025 COMPR EHENS MAGDALENA METAB OLIC PANEL ALT 40 U/L 9-46 normal Not Available [facility] [address], [place], [address], 01/25/2025 21:25:15 01/25/2001/25/2025 HEMOG LOBIN A1C hemoglobin [...] for child ivania. Not Available [facility] [address] Bl[place], [place], [address], 01/25/2025 21:25:15 Result Notes None recorded. Problems Name Problem SNOMED Code Status Onset Date Resolution Date Notes Provider Name and Address Organization Details Recorded Time Essential hypertensio n 77277743 Active Kem Davila MD [address] [place] [address], [phone], [facility] 2 10:15:35 Headache 49469547 Active [facility] 6 19:57:12 Insomnia 679676596 Active [facility] 6 19:57:12 Pain of shoulder region 52063660 Active [facility] 6 19:57:12 Impaired glucose tolerance 1783496 Active Karl Ci Li [facility] 6 19:57:12 Hyperlipide brit 39003605 Completed 05/16/2018 Kem Davila MD [address] [place] [address], [address], [facility] 9 09:30:10 Dyslipidemi a 364229581 Active 2018 Kem Davila MD [address] [place] [address], [address], [facility] 2 10:15:29 Type 2 diabetes mellitus 22923249 Active 2020 Kem Davila MD [address] [place] [address], [address], [facility] 5 11:01:53 Problem Notes None recorded. Procedures Surgical History Date Name Laterality Status Provider Name and Address Organization Details Recorded Time 5 Diabetic Foot Exam completed Kem Davila MD [address] [place], [address], [facility] 03/05/2025 09:30:45 4 Diabetic Foot Exam completed Kem Davila MD [address] [facility] [place], [address], [facility] 12/04/2023 18:10:26 1 DSMT/s Assessment / Education Record completed Hortencia Al RN [facility] 03/17/2021 16:04:32 Imaging Results None recorded. [...] Updated DateTime 5 167.01 cm 26.4 kg/m2 93389.7 1 g 96 [degF] 73 /min 99 % 153/93 mm[Hg] 156/95 mm[Hg] Faina Castro [facility] 5 10:44:38 Social History Question Answer Notes LastModified by Organization Details LastModified Time Tobacco Smoking Status Never Smoker Elo Lozano [facility] 03/05/2022 09:57:10 Do You Have An Advance Directive? No [email or web address] Information not available 12/04/2023 What Is Your Level Of Caffeine Consumption? Occasional Tea Sometimes Information not available 06/12/2015 How Much Tobacco Do You Chew? None Information not available 06/12/2015 In The 14 Days Before Symptom Onset, Have You Had Close Contact With A Laboratory-confir med COVID-19 While That Case Was Ill? No Information not available 06/11/2020 In The 14 Days Before Symptom Onset, Have You Had Close Contact With A Person Who Is Under Investigation For COVID-19 While That Person Was Ill? No [email or web address] Information not available 06/11/2020 Have You Been To An Area Known To Be High Risk For COVID-19? No [email or web address] Information not available 06/11/2020 What Type Of Diet Are You Following? REGULAR Eats Chicken Only Information not available 06/12/2015 Education 4 Year College Informatio n not available 06/12/2015 Who Is Your Employer? [employer] Information not available 12/04/2023 Have There Been Any Changes To Your Family Or Social Situation? No Information not available 12/04/2023 Are There Any Guns Present In Your Home? No Information not available 06/12/2015 Hard Of Hearing Or Deaf In One Or Both Ears? No [email or web address] Information not available 05/19/2015 Legally Blind In One Or Both Eyes? No [email or web address] Information not available 05/19/2015 Live Alone Or With Others? With Others Information not available 06/12/2015 Homeless Not Homeless [email or web address] Information not available 08/15/2018 In The Past Month, Was There Any Day When You Or Someone In Your Family Went Hungry Because You Didn't Have Money For Food? No Information not available 08/15/2018 Do You Need Help Finding Clothing Or Other Supplies For Yourself Or For Your Children? No [email or web address] Information not available 08/15/2018 Do You Need Medicine But Cannot Buy It Because It Is Too Expensive? No Information not available 08/15/2018 Do You Need Transportation To Medical Appointments? No [email or web address] Information not available 08/15/2018 Do You Worry That You Can't Pay Your Utility Bill(s)? (electric, Gas, Heating Oil, Telephone) No Information not available 03/05/2022 Do You Prefer To Learn By: Verbal Communication [email or web address] Information not available 08/15/2018 Do You Have Any Of The Following Barriers To Learn: None Of The Above [email or web address] Information not available 08/15/2018 Last SDWI Completion Date 02/11/2025 Information not available 02/11/2025 [...] Or Bleeding Gums When You Eat Or Vance Your Teeth? No Information not available 12/04/2023 Has Anyone In The Immediate Family (including A Caregiver) Had Tooth Decay Or Lost A Tooth From Tooth Decay In The Past Year? (Yes Indicates Positive Result) No Information not available 12/04/2023 On Average, How Many Days Per Week Do You Vance Your Teeth For At Least Two Minutes, [...] 12/04/2023 What Is Your Relationship Status? In [facility], > 20 Years Information not available 12/04/2023 Do You Use Your Seat Belt Or Car Seat Routinely? Yes Information not available 06/12/2015 Are You Sexually Active? No Information not available 06/12/2015 Do You Have Smoke And Carbon Monoxide Detectors In Your Home? Yes Information not available 06/12/2015 How Much Tobacco Do You Smoke? No [email or web address] Information not available 05/19/2015 Do You Use [...] other forms of tobacco or nicotine? No [email or web address] Information not available 03/05/2022 What is your level of alcohol consumption? None [email or web address] Information not available 12/02/2015 Are you currently employed? Yes Information not available 06/12/2015 Do you have transportation difficulties? No Information not available 12/04/2023 Are you able to care for yourself independently? 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 Information not available 06/12/2015 What is your [...] state Cancer: None Medical History Condition Response Anxiety/Depression N Gout N Renal Failure N Kidney Stones N Breast Cancer N Erectile Dysfunction N Lung Cancer N Testicular Cancer N Reflux Disease (GERD/Heartburn/Reflux) N Incontinence N Hepatitis (A,B or C) N Drug Abuse/Addiction N Chronic Neck or Back Pain N Post Traumatic Stress Disorder N Headaches/Migraines N Tuberculosis or a Positive PPD N Alcoholism N Seizure Disorder (Epilepsy) N Hemorrhoids N Frequent Ear Infections N Frequent Sinus Infections N Blood Clot N Other type of Cancer N Stroke N ADHD N Endometriosis N High Cholesterol Y Skin Cancer N Colorectal Cancer N Rheumatoid Arthritis N Schizophrenia N Panic Disorder N Fibromyalgia N Irritable Bowel Syndrome N Chronic Fatigue Syndrome N Osteoarthritis N Scoliosis N Thyroid Disorder or Cancer N Frequent Urinary Tract Infections N Ulcers or Gastrointestinal Bleed N Prostate Cancer N Gallstones N Eating Disorder N PreDiabetes N Anemia N COPD (emphysema or chronic bronchitis) N Diabetes N Cervical/Uterine/Ovarian Cancer N Cataracts N Benign Prostate Hyperplasia (BPH) N Insomnia N Allergic Rhinitis N Eczema N Obsessive Compulsive Disorder (OCD) N Heart Attack N Asthma N Lupus N Psoriasis N Crohn's Disease or Ulcerative Colitis N Bipolar Disorder N Autism N Sleep Apnea N AIDS or HIV N Heart Disease N Hypertension Y Osteoporosis N Immunizations Vaccine Type Date Status Note Provider Name and Address Organization Details Recorded Time Influenza, split virus, quadrivalent, PF 017 cancelled patient objection Not Available [facility] 06/01[facility]2019 02:13:16 Influenza, split virus, quadrivalent, PF 017 completed Not Available [facility] 06/01/2019 02:13:15 Tdap 018 cancelled patient objection Not Available [facility] 06/01/2019 02:13:28 Influenza, high-dose, trivalent, PF 016 completed Sammie Caceres [facility] 03/03/2016 09:18:24 COVID-19, mRNA, LNP-S, PF, 30 mcg/0.3 mL dose 021 completed Faina Linder RN [facility] 03/30/2021 18:07:45 Influenza, split virus, quadrivalent, PF 022 cancelled patient objection Kem Davila MD [address] [place], [address], [facility] 03/07/2022 20:23:15 COVID-19, mRNA, LNP-S, bivalent, PF, 50 mcg/0.5 mL or 25mcg/0.25 mL dose 022 cancelled patient objection Kem Davila MD [address] [place], [address], [facility] 03/07/2022 20:23:15 Influenza, split virus, quadrivalent, PF 023 cancelled patient objection Kem Davila MD [address] [place] [address], , [facility] 06/20/2022 13:00:54 COVID-19, mRNA, LNP-S, bivalent, PF, 50 mcg/0.5 mL or 25mcg/0.25 mL dose 023 cancelled patient objection Kem Davila MD [address] [place] [address], , [facility] 06/20/2022 13:00:54 pneumococcal polysaccharide PPV23 023 cancelled patient objection Kem Davila MD [address] [place] [address], , [facility] 06/20/2022 13:00:54 Tdap 024 cancelled patient objection Kem Davila MD [address] [place] [address], , [facility] 12/04/2023 21:03:22 COVID-19, mRNA, LNP-S, PF, 30 mcg/0.3 mL dose 021 [email or web address] 12/04/2023 17:32:00 Past Encounters Encounter ID Performer Location Encounter Start Date Encounter Closed Date Diagnosis/Indication Diagnosis SNOMED-CT Code Diagnosis ICD10 Code Diagnosis IMO Codes Diagnosis Note [id number] Kem Davila MD [facility] [address] [place] [address] 02/11/2025 09:55:34 02/11/2025 11:31:39 Essential hypertension 37971487 I10 HTN not controlled but he controlled at home, but pt not consistent with lifestyle changes previously discussed- Refill amlodipine 10mg daily- Refill losartan 100mg po daily- start spironolac tone 25mg daily- Pt motivated to start exercising - Encouraged dietary changes Type 2 naveen betes mellitus 89120582 E11.29 R80.9 [id number] DMT2, not controlled with last HgbA1C 7.3%. [...] Guarantor Name 02/11/2025 2 [facility] ([facility] Jeremiah Worley [id number] Jeremiah Worley 02/11/2025 1 [facility] Jeremiah Worley [id number] Jeremiah Worley Notes Date Note Type [...] in the HPI Kem Davila MD [address] [place], [address], [facility] 03/05/2025 09:32:52
--- OUTSIDE RECORDS SUMMARY | 2025-04-24 00:19 | XMS_ITS | Data Portability ---
Author Organization [facility] [place] [address] [place] [address] Assessment Encounter Date Assessment Date Assessment LastModified by Organization Details LastModified Time 01/11/2024 01/11/2024 #1 patient is at home, with No one present in the room #2 provider is at [facility] in a secure private location #3 This is a Telehealth visit conducted over secure video #4 Verbal &/or Written consent obtained #5 Length of medical discussion 17 minutes [email or web address] Not available 01/11/2024 17:25:05 10/17/2024 10/17/2024 #1 patient is at home, with No one present in the room #2 provider is at [facility] in a secure private location #3 [...] HbA1c (hemoglob in A1c), blood 2024 025 [facility], [address], [place], [address], 12/11/2024 08:10:22 CMP, serum or plasma 2024 025 [email or web address] [facility], [address], [place], [address], 12/11/2024 08:10:22 lipid panel, serum 2024 025 [place] [address] [email or web address] [facility], [address], [address], [place], [address], 12/11/2024 08:10:22 microalbu min/creat inine, mass ratio, urine 2024 025 [place] [address] [email or web address] [facility], [address], [address], [place], [address], 12/11/2024 08:10:22 lipid panel, serum 2024 025 [place] [address] [email or web address] [facility], [address], [address], [place], [address], 08/12/2024 09:16:55 HbA1c (hemoglob in A1c), blood 2024 025 [place] [address] [email or web address] [facility], [address], [address], [place], [address], 08/12/2024 09:16:55 microalbu min/creat inine, mass ratio, urine 2023 024 [place] [address] [email or web address] [facility], [address], [address], [place], [address], 02/22/2024 08:13:19 protein electroph oresis, urine 2023 024 [place] [address] [email or web address] [facility], [address], [address], [place], [address], 02/22/2024 08:13:19 microalbu min/creat inine, mass ratio, urine 2023 024 DANN [facility], [address], [address], [place], [address], 12/08/2023 17:21:27 HbA1c (hemoglob in A1c), blood 2023 024 [facility], [address], [address], [place], [address], 01/09/2024 05:24:55 lipid panel, serum 2023 024 DANNBright ComputingMiravista [facility], [address], [address], [place], [address], 01/09/2024 05:24:54 noninvasi ve colorecta l cancer DNA + occult blood screening , QL, stool 2023 [facility], [address], [address], [place], [address], 12/28/2023 20:49:59 CMP, serum or plasma 2023 024 [facility]ANNBright ComputingMir[facility], [address], [address], [place], [address], 01/09/2024 05:24:55 Referral nephrolog ist referral - 54 year old male with DMT2, proteinur ia, HTN, and CKD stage 3. please evaluate 2024 025 [email or web address] Sunday Banks MD, [address] [place] [address] Dr, [address], [place], [address], 04/04/2025 11:25:24 podiatris t referral - please evaluate and treat left heel pain, suspect calcaneal osteophyt e. recommend ed heel inserts 2024 025 [facility], [address] [place], [address], 06/21/2024 11:20:47 Procedures None recorded. Surgeries None recorded. Imaging None recorded. Medication Orders Farxiga 10 mg tablet 2024 025 [facility]acy [facility][id number], [address] [place], [address], 02/11/2025 11:14:11 amlodipin e 10 mg tablet 2024 025 [facility]/Pharmacy #[id number], [address] [place], [address], 02/11/2025 11:14:13 losartan 100 mg tablet 2024 025 [facility]/Pharmacy #[id number], [address] [place], [address], 02/11/2025 11:14:12 spironola ctone 25 mg tablet 2024 025 [id number] [address] [place], [address], 02/11/2025 11:17:23 atorvasta tin 40 mg tablet 2024 025 [facility]/Pharmacy #[id number], [address] [place], [address], 10/17/2024 08:50:18 amlodipin e 10 mg tablet 2024 025 [facility] [address] [place], [address], 10/17/2024 08:50:18 losartan 100 mg tablet 2024 025 [facility]/Pharmacy #[id number], [address] [place], [address], 10/17/2024 08:50:17 atorvasta tin 40 mg tablet 2024 025 [facility]/Pharmacy #7111, [address] [place] [address], [address], 06/19/2024 16:31:37 amlodipin e 10 mg tablet 2024 025 D[id number], [address] [place], [address], 06/19/2024 16:31:37 losartan 100 mg tablet 2024 025 [facility] [address] [place], [address], 06/19/2024 16:31:38 atorvasta tin 40 mg tablet 2023 024 [facility] [address] [place], [address], 12/04/2023 18:07:08 amlodipin e 5 mg tablet 2023 025 [facility] [address] [place], [address], 10/17/2024 08:42:21 losartan 100 mg tablet 2023 024 [id number] [address] [place], [address], 12/04/2023 18:07:08 Patient TargetsNo targets recorded. Patient Instructions Encounter Date Encounter Id Patient Instructions Last Modified By Organization Details Last Modified Time 12/04/2023 [id number] learning about type 2 diabetes jokallo Not [...] administration. jokallo Not available 12/04/2023 21:09:05 01/11/2024 [id number] proteinuria: car e instructions jokallo Not available 01/11/2024 17:27:27 06/19/2024 [id number] prediabetes: car e instructions jokallo Not available 06/19/2024 16:31:34 high blood pressure: care instructions [email or web address] Not available 06/19/2024 16:31:34 learning about high blood pressure rajeevrand Not available 06/19/2024 16:31:34 10/17/2024 [id number] Risks and benefits of medication(s) discussed with patient. Patient verbalized understanding. [email or web address] Not available 10/17/2024 08:50:20 02/11/2025 [id number] Risks and benefits of medication(s) discussed with patient. Patient verbalized understanding. liudmila Not available 03/05/2025 09:31:54 Reason for Referral Online Merchandising Coordinator Referral for Bone spur of left foot please evaluate and treat left heel pain, suspect calcaneal osteophyte. recommended heel inserts Referring Physician: Kem Davila [facility], Encounter Date: 06/19/2024 [employer] Referral for Ty pe 2 diabetes mellitus 54 year old male with DMT2, proteinuria, HTN, and CKD stage 3. please evaluate Referring Physician: Kem Davila [facility], Encounter Date: 02/11/2025 Results Created Date Observation Date Name Description Value Unit Range Abnormal Flag Note LastModifiedBy Organization Detail LastModifiedTime 12/08/19 24 12/08/2023 ALBUM IN, RANDO M URINE W/CRE ATINI NE creatinine, random urine 27 mg/dL 20-320 normal Not Available [facility] [address], [address], 12/08/2023 17:21:27 12/08/19 24 12/08/2023 ALBUM IN, RANDO M URINE W/CRE ATINI NE albumin, urine 16.3 mg/dL see note: normal Refer ence Range : Refer ence Range Not estab lishe d Not Available [facility] dakickMirav[facility] [address], [address], 12/08/2023 17:21:27 12/08/19 24 12/08/2023 ALBUM IN, [...] a diagn ostic categ ory. Not Available [facility] [place] [facility] [address] [place], [place], [address], 12/08/2023 17:21:27 12/25/19 24 12/25/2023 COLOG UARD [...] of 10,00 0 indiv idual s at [place] risk for color ectal cance r [...] asymp tomat ic indiv idual s at [facility] risk for color ectal cance r. Follo [...] 112:1 016-1 030. TEST DESCR IPTIO N: Prince site algor ithmi c wilton sis of [...] years or older , who are at [facility] for color ectal cance r (CRC) . Colog uard has been appro speedy for use by the [place]. FDA. The perfo rmanc e of Colog uard was estab lishe d in a cross secti onal study of [facility] adult s aged 50-84 . Colog uard [...] study of 0 indiv idual s at [facility] risk for color ectal cance r who [...] at www.c carol francisd.c om. Not Available [employer] [address], [place], [address], 12/28/2023 20:49:59 01/08/20 24 01/09/2024 LIPID PANEL WITH REFLE X TO DIREC T LDL cholesterol, total 158 mg/dL <200 normal Not Available [facility] [place] [facility] [address], [place], [address], 01/09/2024 05:24:54 01/08/20 24 01/09/2024 LIPID PANEL WITH REFLE X TO DIREC T LDL HDL cholesterol 40 mg/dL > or = 40 normal Not Available [facility] [place] [facility] [address], [place], [address], 01/09/2024 05:24:54 01/08/20 24 01/09/2024 LIPID PANEL WITH REFLE X TO DIREC T LDL triglyceride s 154 mg/dL <150 high Not Available [facility] [place] [facility] [address], [place], [address], 01/09/2024 05:24:54 01/08/20 24 01/09/2024 LIPID PANEL [...] 2061- 2068 (http ://ed ucati on.Qu [employer]. com/f aq/FA Q164) Not Available [facility] [place] [facility] [address], [place], [address], 01/09/2024 05:24:54 01/08/20 24 01/09/2024 LIPID PANEL WITH REFLE X TO DIREC T LDL chol/HDLC ratio 4.0 (calc ) <5.0 normal Not Available [facility] [address], [place], [address], 01/09/2024 05:24:54 01/08/20 24 01/09/2024 LIPID PANEL WITH REFLE X TO DIREC T LDL non HDL cholesterol 118 mg/dL _(emma c) <130 normal For patie nts with diabe malia plus 1 major ASCVD risk facto r, treat ing to a non-H DL-C goal of <100 mg/dL (LDL- C of <70 mg/dL ) is consi beverley worthington optio n. Not Available [facility] [place] [facility] [address], [place], [address], 01/09/2024 05:24:54 01/08/20 24 01/09/2024 COMPR EHENS MAGDALENA METAB OLIC PANEL glucose 94 mg/dL 65-99 normal Fasti ng refer ence inter nahum Not Available [facility] [place] [facility] [address], [place], [address], 01/09/2024 05:24:55 01/08/20 24 01/09/2024 COMPR EHENS MAGDALENA METAB OLIC PANEL urea nitrogen (BUN) 20 mg/dL 7-25 normal Not Available [facility] [address], [place], [address], 01/09/2024 05:24:55 01/08/20 24 01/09/2024 COMPR EHENS MAGDALENA METAB OLIC PANEL creatinine 1.25 mg/dL 0.70-1 .30 normal Not Available [facility] [address], [place], [address], 01/09/2024 05:24:55 01/08/20 24 01/09/2024 COMPR EHENS MAGDALENA METAB OLIC PANEL eGFR 69 mL/mi n/1.7 3m2 > or = 60 normal Not Available [facility] [place] [facility] [address], [place], [address], 01/09/2024 05:24:55 01/08/20 24 01/09/2024 COMPR EHENS MAGDALENA METAB OLIC PANEL BUN/creatini ne ratio SEE NOTE: (calc ) 6-22 Not Repor elaine: BUN and Creat inine are withi n refer ence range . Not Available [facility] [address], [place], [address], 01/09/2024 05:24:55 01/08/20 24 01/09/2024 COMPR EHENS MAGDALENA METAB OLIC PANEL sodium 138 mmol/ L 135-14 6 normal Not Available [facility] [address], [place], [address], 01/09/2024 05:24:55 01/08/20 24 01/09/2024 COMPR EHENS MAGDALENA METAB OLIC PANEL potassium 3.9 mmol/ L 3.5-5. 3 normal Not Available [facility] [address], [place], [address], 01/09/2024 05:24:55 01/08/20 24 01/09/2024 COMPR EHENS MAGDALENA METAB OLIC PANEL chloride 109 mmol/ L 98-110 normal Not Available [facility] [address], [place], [address], 01/09/2024 05:24:55 01/08/20 24 01/09/2024 COMPR EHENS MAGDALENA METAB OLIC PANEL carbon dioxide 22 mmol/ L 20-32 normal Not Available [facility] [address], [place], [address], 01/09/2024 05:24:55 01/08/20 24 01/09/2024 COMPR EHENS MAGDALENA METAB OLIC PANEL calcium 8.9 mg/dL 8.6-10 .3 normal Not Available [facility] [address], [place], [address], 01/09/2024 05:24:55 01/08/20 24 01/09/2024 COMPR EHENS MAGDALENA METAB OLIC PANEL protein, total 6.9 g/dL 6.1-8. 1 normal Not Available [facility] [address], [place], [address], 01/09/2024 05:24:55 01/08/20 24 01/09/2024 COMPR EHENS MAGDALENA METAB OLIC PANEL albumin 4.5 g/dL 3.6-5. 1 normal Not Available [facility] [address], [place], [address], 01/09/2024 05:24:55 01/08/20 24 01/09/2024 COMPR EHENS MAGDALENA METAB OLIC PANEL globulin 2.4 g/dL_ (calc ) 1.9-3. 7 normal Not Available [facility] [address], [place], [address], 01/09/2024 05:24:55 01/08/20 24 01/09/2024 COMPR EHENS MAGDALENA METAB OLIC PANEL albumin/glob ulin ratio 1.9 (calc ) 1.0-2. 5 normal Not Available [facility] [address], [place], [address], 01/09/2024 05:24:55 01/08/20 24 01/09/2024 COMPR EHENS MAGDALENA METAB OLIC PANEL bilirubin, total 0.8 mg/dL 0.2-1. 2 normal Not Available [facility] [address], [place], [address], 01/09/2024 05:24:55 01/08/20 24 01/09/2024 COMPR EHENS MAGDALENA METAB OLIC PANEL alkaline phosphatase 73 U/L 35-144 normal Not Available [facility] [place] [facility] [address], [address], 01/09/2024 05:24:55 01/08/20 24 01/09/2024 COMPR EHENS MAGDALENA METAB OLIC PANEL AST 20 U/L 10-35 normal Not Available [facility] [place] [facility] [address], [place], [address], 01/09/2024 05:24:55 01/08/20 24 01/09/2024 COMPR EHENS MAGDALENA METAB OLIC PANEL ALT 31 U/L 9-46 normal Not Available [facility] [place] [facility] [address], [address], 01/09/2024 05:24:55 01/08/20 24 01/09/2024 HEMOG LOBIN [...] valid ation testi ng condu cted at [email or web address] , the Nicolasa platf orm relat magdalena to the Abbot t platf orm had an avera ge incre ase in HbA1c value of < or = 0.3%. This diffe rence is withi n accep elaine varia bilit y estab lishe d by the [facility] [employer]co hemog lobin Stand brandonz ation Progr am. Note that not all indiv idual s will have had a shift in their resul ts and direc t cindy rison s betwe en histo rical and curre nt resul ts for testi ng condu cted on diffe rent platf orms is not recom lucius d. Not Available [facility] [place] [facility] [address], [address], 01/09/2024 05:24:55 01/25/20 25 01/25/2025 LIPID PANEL WITH REFLE X TO DIREC T LDL cholesterol, total 164 mg/dL <200 normal Not Available [facility] [place] [facility] [address], [address], 01/25/2025 21:25:14 01/25/20 25 01/25/2025 LIPID PANEL WITH REFLE X TO DIREC T LDL HDL cholesterol 44 mg/dL > or = 40 normal Not Available [facility] [place] [facility] [address], [address], 01/25/2025 21:25:14 01/25/20 25 01/25/2025 LIPID PANEL WITH REFLE X TO DIREC T LDL triglyceride s 116 mg/dL <150 normal Not Available [facility] [address], [address], 01/25/2025 21:25:14 01/25/20 25 01/25/2025 LIPID PANEL [...] 310(1 9): 2061- 2068 (http ://ed ucati on.[employer]. [employer]/f aq/FA Q164) Not Available [facility] [address], [address], 01/25/2025 21:25:14 01/25/20 25 01/25/2025 LIPID PANEL WITH REFLE X TO DIREC T LDL chol/HDLC ratio 3.7 (calc ) <5.0 normal Not Available [facility] [address], [place], [address], 01/25/2025 21:25:14 01/25/20 25 01/25/2025 LIPID PANEL WITH REFLE X TO DIREC T LDL non HDL cholesterol 120 mg/dL _(emma c) <130 normal For patie nts with diabe malia plus 1 major ASCVD risk facto r, treat ing to a non-H DL-C goal of <100 mg/dL (LDL- C of <70 mg/dL ) is consi dered a thera peuti c optio n. Not Available [facility] [address], [address], 01/25/2025 21:25:14 01/25/20 25 01/25/2025 ALBUM IN, RANDO M URINE W/CRE ATINI NE creatinine, random urine 134 mg/dL 20-320 normal Not Available [facility] [address], [place], [address], 01/25/2025 21:25:14 01/25/2001/25/2025 ALBUM IN, RANDO M URINE W/CRE ATINI NE albumin, urine 75.3 mg/dL see note: normal Refer ence Range : Refer ence Range Not estab lishe d Verif ied by repea t wilton sis. Not Available [facility] [address], [place], [address], 01/25/2025 21:25:14 01/25/2001/25/2025 ALBUM IN, RANDO M [...] a diagn ostic categ ory. Not Available [facility] [address], [place], [address], 01/25/2025 21:25:14 01/25/2001/25/2025 COMPR EHENS MAGDALENA METAB OLIC PANEL glucose 111 mg/dL 65-139 normal Non-f astin g refer ence inter nahum Not Available [facility] [address], [place], [address], 01/25/2025 21:25:15 01/25/20 25 01/25/2025 COMPR EHENS MAGDALENA METAB OLIC PANEL urea nitrogen (BUN) 23 mg/dL 7-25 normal Not Available [facility] [address], [place], [address], 01/25/2025 21:25:15 01/25/20 25 01/25/2025 COMPR EHENS MAGDALENA METAB OLIC PANEL creatinine 1.57 mg/dL 0.70-1 .30 high Not Available [facility] [address], [place], [address], 01/25/2025 21:25:15 01/25/20 25 01/25/2025 COMPR EHENS MAGDALENA METAB OLIC PANEL eGFR 52 mL/mi n/1.7 3m2 > or = 60 low Not Available [facility] [address], [place], [address], 01/25/2025 21:25:15 01/25/20 25 01/25/2025 COMPR EHENS MAGDALENA METAB OLIC PANEL BUN/creatini ne ratio 15 (calc ) 6-22 normal Not Available [facility] [address], [place], [address], 01/25/2025 21:25:15 01/25/20 25 01/25/2025 COMPR EHENS MAGDALENA METAB OLIC PANEL sodium 140 mmol/ L 135-14 6 normal Not Available [facility] [address], [place], [address], 01/25/2025 21:25:15 01/25/20 25 01/25/2025 COMPR EHENS MAGDALENA METAB OLIC PANEL potassium 3.7 mmol/ L 3.5-5. 3 normal Not Available [facility] [address], [place], [address], 01/25/2025 21:25:15 01/25/20 25 01/25/2025 COMPR EHENS MAGDALENA METAB OLIC PANEL chloride 107 mmol/ L 98-110 normal Not Available [facility] [address], [place], [address], 01/25/2025 21:25:15 01/25/20 25 01/25/2025 COMPR EHENS MAGDALENA METAB OLIC PANEL carbon dioxide 24 mmol/ L 20-32 normal Not Available [facility] [place] [facility] [address], [place], [address], 01/25/2025 21:25:15 01/25/20 25 01/25/2025 COMPR EHENS MAGDALENA METAB OLIC PANEL calcium 8.9 mg/dL 8.6-10 .3 normal Not Available [facility] [address], [place], [address], 01/25/2025 21:25:15 01/25/20 25 01/25/2025 COMPR EHENS MAGDALENA METAB OLIC PANEL protein, total 6.5 g/dL 6.1-8. 1 normal Not Available [facility] [address], [place], [address], 01/25/2025 21:25:15 01/25/20 25 01/25/2025 COMPR EHENS MAGDALENA METAB OLIC PANEL albumin 4.3 g/dL 3.6-5. 1 normal Not Available [facility] [address], [place], [address], 01/25/2025 21:25:15 01/25/20 25 01/25/2025 COMPR EHENS MAGDALENA METAB OLIC PANEL globulin 2.2 g/dL_ (calc ) 1.9-3. 7 normal Not Available [facility] [address], [place], [address], 01/25/2025 21:25:15 01/25/20 25 01/25/2025 COMPR EHENS MAGDALENA METAB OLIC PANEL albumin/glob ulin ratio 2.0 (calc ) 1.0-2. 5 normal Not Available [facility] [place] [facility] [address], [place], [address], 01/25/2025 21:25:15 01/25/20 25 01/25/2025 COMPR EHENS MAGDALENA METAB OLIC PANEL bilirubin, total 0.7 mg/dL 0.2-1. 2 normal Not Available [facility] [place] [facility] [address], [place], [address], 01/25/2025 21:25:15 01/25/20 25 01/25/2025 COMPR EHENS MAGDALENA METAB OLIC PANEL alkaline phosphatase 78 U/L 35-144 normal Not Available [facility] [place] [facility] [address], [place], [address], 01/25/2025 21:25:15 01/25/20 25 01/25/2025 COMPR EHENS MAGDALENA METAB OLIC PANEL AST 23 U/L 10-35 normal Not Available [facility] [place] [facility] [address], [place], [address], 01/25/2025 21:25:15 01/25/20 25 01/25/2025 COMPR EHENS MAGDALENA METAB OLIC PANEL ALT 40 U/L 9-46 normal Not Available [facility] [address], [address], 01/25/2025 21:25:15 01/25/2001/25/2025 HEMOG LOBIN A1C hemoglobin [...] diabe malia for child ivania. Not Available [email or web address] [place] [facility] [address], [place], [address], 01/25/2025 21:25:15 Result Notes None recorded. Problems Name Problem SNOMED Code Status Onset Date Resolution Date Notes Provider Name and Address Organization Details Recorded Time Essential hypertensio n 86680892 Active Kem Davila MD [address] [place] [address], [address], [facility] 2 10:15:35 Headache 87798366 Active Karl Ci Li [facility] 6 19:57:12 Insomnia 208555634 Active Karl Ci Li [facility] 6 19:57:12 Pain of shoulder region 23494575 Active Karl Ci Li [facility] 6 19:57:12 Impaired glucose tolerance 5184261 Active Karl Ci Li [facility] 6 19:57:12 Hyperlipide brit 59127292 Completed 05/16/2018 Kem Davila MD [address] [place] [address], [address], [facility] 9 09:30:10 Dyslipidemi a 327164566 Active 2018 Kem Davila MD [address] [place] [address], [address], [facility] 2 10:15:29 Type 2 diabetes mellitus 73237498 Active 2020 Kem Davila MD [address] [place] [address], [address], [facility] 5 11:01:53 Problem Notes None recorded. Procedures Surgical History Date Name Laterality Status Provider Name and Address Organization Details Recorded Time 5 Diabetic Foot Exam completed Kem Davila MD [address] [place], [address], [facility] 03/05/2025 09:30:45 4 Diabetic Foot Exam completed Kem Davila MD [address] [place], [address], [facility] 12/04/2023 18:10:26 1 DSMT/s Assessment / Education Record completed Hortencia Al RN [facility] 03/17/2021 16:04:32 Imaging Results None recorded. Procedure [...] Updated DateTime 5 167.01 cm 22.8 kg/m2 69115.9 3 g 18 /min 90 /min 99 % 150/90 mm[Hg] 148/90 mm[Hg] Sobeida Wells [facility] 16:10:39 Date Recorded Body height Systolic And Diastolic Systolic And Diastolic Provider Name and Address Organization Details Last Updated DateTime 10/17/2024 167.01 cm 155/92 mm[Hg] 124/89 mm[Hg] Kem Davila MD [address] [place], [address], [facility] 10/17/2024 08:44:37 Date Recorded Body height Body mass index (BMI) Body weight Respiratory rate Oxygen saturation Heart rate Systolic And Diastolic Systolic And Diastolic Provider Name and Address Organization Details Last Updated DateTime 4 167.01 cm 22.8 kg/m2 67032.9 3 g 18 /min 97 % 74 /min 148/99 mm[Hg] 149/100 mm[Hg] Sobeida Wells [facility] 4 17:36:43 Date Recorded Body height Heart rate Systolic And Diastolic Systolic And Diastolic Provider Name and Address Organization Details Last Updated DateTime 01/11/2024 167.01 cm 74 /min 163/101 mm[Hg] 157/97 mm[Hg] Kem Davila MD [address] [place], [address] , [facility] 01/11/2024 17:17:49 Date Recorded Body height Body mass index (BMI) Body weight Body temperature Heart rate Oxygen saturation Systolic And Diastolic Systolic And Diastolic Provider Name and Address Organization Details Last Updated DateTime 167.01 cm 26.4 kg/m2 93825.7 1 g 96 [degF] 73 /min 99 % 153/93 mm[Hg] 156/95 mm[Hg] Faina Castro [facility] 5 10:44:38 Social History Question Answer Notes LastModified by Organization Details LastModified Time Tobacco Smoking Status [facility]22 09:57:10 Do You Have An Advance Directive? No Information not available 12/04/2023 What Is Your Level Of Caffeine Consumption? Occasional Tea Sometimes Information not available 06/12/2015 How Much Tobacco Do You Chew? None Information not available 06/12/2015 In The 14 Days Before Symptom Onset, Have You Had Close Contact With A Laboratory-confir med COVID-19 While That Case Was Ill? No [email or web address] Information not available 06/11/2020 In The 14 Days Before Symptom Onset, Have You Had Close Contact With A Person Who Is Under Investigation For COVID-19 While That Person Was Ill? No [email or web address] Information not available 06/11/2020 Have You Been To An Area Known To Be High Risk For COVID-19? No [email or web address] Information not available 06/11/2020 What Type Of Diet Are You Following? REGULAR Eats Chicken Only Information not available 06/12/2015 Education 4 Year College Informatio n not available 06/12/2015 Who Is Your Employer? [employer] Information not available 12/04/2023 Have There Been Any Changes To Your Family Or Social Situation? No Information not available 12/04/2023 Are There Any Guns Present In Your Home? No Information not available 06/12/2015 Hard Of Hearing Or Deaf In One Or Both Ears? No [email or web address] Information not available 05/19/2015 Legally Blind In One Or Both Eyes? No [email or web address] Information not available 05/19/2015 Live Alone Or With Others? With Others Information not available 06/12/2015 Homeless Not Homeless [email or web address] Information not available 08/15/2018 In The Past Month, Was There Any Day When You Or Someone In Your Family Went Hungry Because You Didn't Have Money For Food? No [email or web address] Information not available 08/15/2018 Do You Need Help Finding Clothing Or Other Supplies For Yourself Or For Your Children? No [email or web address] Information not available 08/15/2018 Do You Need Medicine But Cannot Buy It Because It Is Too Expensive? No [email or web address] Information not available 08/15/2018 Do You Need Transportation To Medical Appointments? No [email or web address] Information not available 08/15/2018 Do You Worry That You Can't Pay Your Utility Bill(s)? (electric, Gas, Heating Oil, Telephone) No [email or web address] Information not available 03/05/2022 Do You Prefer To Learn By: Verbal Communication Information not available 08/15/2018 Do You Have Any Of The Following Barriers To Learn: None Of The Above [email or web address] Information not available 08/15/2018 Last [facility] Completion Date 02/11/2025 Information not available 02/11/2025 [...] Or Bleeding Gums When You Eat Or Mallory Your Teeth? No Information not available 12/04/2023 Has Anyone In The Immediate Family (including A Caregiver) Had Tooth Decay Or Lost A Tooth From Tooth Decay In The Past Year? (Yes Indicates Positive Result) No Information not available 12/04/2023 On Average, How Many Days Per Week Do You Mallory Your Teeth For At Least Two Minutes, [...] 12/04/2023 What Is Your Relationship Status? In [facility], > 20 Years Information not available 12/04/2023 Do You Use Your Seat Belt Or Car Seat Routinely? Yes Information not available 06/12/2015 Are You Sexually Active? No Information not available 06/12/2015 Do You Have Smoke And Carbon Monoxide Detectors In Your Home? Yes Information not available 06/12/2015 How Much Tobacco Do You Smoke? No [email or web address] Information not available 05/19/2015 Do You Use [...] other forms of tobacco or nicotine? No Information not available 03/05/2022 What is your level of alcohol consumption? None [email or web address] Information not available 12/02/2015 Are you currently employed? Yes Information not available 06/12/2015 Do you have transportation difficulties? No Information not available 12/04/2023 Are you able to care for yourself independently? 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 Information not available 06/12/2015 What [...] Incontinence N Hepatitis (A,B or C) N Chronic Neck or Back Pain N Drug Abuse/Addiction N Post Traumatic Stress Disorder N Headaches/Migraines [...] PF 017 cancelled patient objection Not Available [facility] 06/01/2019 02:13:16 Influenza, split virus, quadrivalent, PF 017 completed Not Available [facility] 06/01/2019 02:13:15 Tdap 018 cancelled patient objection Not Available [facility] 06/01/2019 02:13:28 Influenza, high-dose, trivalent, PF 016 completed Sammie Caceres [facility] 03/03/2016 09:18:24 COVID-19, mRNA, LNP-S, PF, 30 mcg/0.3 mL dose 021 completed Faina Linder RN [facility] 03/30/2021 18:07:45 Influenza, split virus, quadrivalent, PF 022 cancelled patient objection Kem Davila MD [address] [place], [address], [facility] 03/07/2022 20:23:15 COVID-19, mRNA, LNP-S, bivalent, PF, 50 mcg/0.5 mL or 25mcg/0.25 mL dose 022 cancelled patient objection Kem Davila MD [address] [place], [address], [facility] 03/07/2022 20:23:15 Influenza, split virus, quadrivalent, PF 023 cancelled patient objection Kem Davila MD [address] [place], [address], [facility] 06/20/2022 13:00:54 COVID-19, mRNA, LNP-S, bivalent, PF, 50 mcg/0.5 mL or 25mcg/0.25 mL dose 023 cancelled patient objection Kem Davila MD [address] [place] [address], [phone], [facility] 06/20/2022 13:00:54 pneumococcal polysaccharide PPV23 023 cancelled patient objection Kem Davila MD [address] [place] [address], [phone], [facility] 06/20/2022 13:00:54 Tdap 024 cancelled patient objection Kem Davila MD [address] [place] [address], [phone], [facility] 12/04/2023 21:03:22 COVID-19, mRNA, LNP-S, PF, 30 mcg/0.3 mL dose 021 completed Sobeida Wells [facility] 12/04/2023 17:32:00 Past Encounters Encounter ID Performer Location Encounter Start Date Encounter Closed Date Diagnosis/Indication Diagnosis SNOMED-CT Code Diagnosis ICD10 Code Diagnosis IMO Codes Diagnosis Note [id number] Abdelrahman Berger MD [address] [address] 05/19/2015 15:09:41 05/19/2015 16:09:59 Essential hypertension 54546443 I10 stable, follow -consider dec meds at next visit Pain of [place] region 28235968 M25.511 ddx-rotato r cuff tear, labral tear, sprain, OA -likely rotator cuff strain -pt f6w, f/u if not improving consider mri -pt refused steroid injection [id number] YENNI HUIZAR [address] [address] 06/12/2015 09:58:31 06/12/2015 11:48:37 Adult health examination 243601096 Z00.00 well visit Laboratory test 93944516 Z00.00 Essential hypertension 97785347 I10 advise pt to go home and restart his BP medication s as directed limit of salt start exercises Headache 64285135 R51 r/t lack of sleep take advil as needed for pain Insomnia 504725015 G47.0 0 start melatonin as directed Pain of ouer region 05839630 M25.511 sx improving continue advil as needed for pain unable to continue PT due to too experience continue shoulder exercises Diabetes m ellitus screening 152849903 Z13.1 [id number] YENNI HUIZAR [address] [address] 09/10/2015 08:55:26 09/10/2015 10:47:00 Essential hypertension 16227040 I10 well controlled continue same meds continue exercises and diet changes Headache 87888405 R51 r/t lack of sleep well controlled . no JOSEPH since pt able to sleep continue advil as needed for recurrs JOSEPH Insomnia 066886267 G47.0 0 well controlled continue same med Pain of [facility] region 27529694 M25.511 sx continue improving continue advil as needed for pain pt declined PT, will do the shoulder exercises at home, since he almost have complete FullROM Impaired g lucose tolerance 6367444 R73.02 check hgba1c today continue exercises and diet changes Hyperlipidemia 82234264 E78.5 check fasting lipid today continue exercises and diet changes [id number] Kem Davila MD [address] [address] 12/02/2015 15:47:26 12/02/2015 16:32:11 Dyslipidemia 863057138 E78.5 New dx of dyslipidem ia- Discussed importance of changing his diet- Encourage pt to start exercising - Start simvastati n- reassess in 3 months Essential hypertension 48167651 I10 HTN controlled - refill amlodipine [id number] Sj Lezama MD [address] [address] 03/03/2016 08:58:27 03/03/2016 09:36:14 Hyperlipidemia 61383969 E78.5 dietary modsrepeat labs [facility] 76895861 M25.512 exerciseac tivity as tolerated Prediabetes 910798645 R7 3.03 [id number] Kem Davila MD [address] [address] 08/18/2016 11:01:11 08/18/2016 14:39:56 Hyperlipidemia 55664968 E78.2 Dyslipidem ia, pt has stopped medication - Order CMP Essential hypertension 94081251 I10 HTN controlled - Stop amlodipine - Refill losartan 50mg po daily Paresthesia 47648045 R20 .2 Paresthesi as in hands and feet-Order Labs- reassess in 1 month Thoracic back pain 93952 8004 M54.6 Thoracic back pain likely from poor posture at work- Discussed remedies for improving posture- If no improvemen t in 1 month, referral to PT [id number] Kem Davila MD [address] [address] 09/15/2016 10:03:35 09/15/2016 10:56:19 Dyslipidemia 536929304 E78.5 Dyslipidem ia- Discussed importance of changing his diet- Encourage pt to start exercising - Continue simvastati n 20mg po daily- reassess in 3 months Essential hypertension 57464028 I10 HTN controlled - Decrease losartan 25mg po daily Bilateral carpal tunnel syndrome 8345385246 6247816 G56.03 bilateral carpal tunnel symptoms- Order carpal tunnel braces [id number] Kem Davila MD [facility] [address] [place] [address] 09/28/2016 10:33:56 09/28/2016 12:52:47 Generalized anxiety disorder 55122621 F41.1 PAIGE, pt has lots of anxiety- instructed to go to counselor- Hand out given Neuropathy 905758496 G62 .9 Ongoing peripheral neuropathy with HgbA1C of 6.2; normal CBC, normal Vit B- referral to neurology [id number] Kem Davila MD [facility] [address] [place] [address] 11/09/2016 10:42:06 11/09/2016 12:35:01 Paresthesia 02073029 R20.2 Paresthesi as in hands and feet being worked up by neurology- EMG to occur in the future- He declines treatment for paresthesi a at this time stating if EMG is normal he will just live sith symptoms Generalize d anxiety disorder 92947007 F41.1 PAIGE, pt is anxious and this drive him to focus on minor occurences and fear they are life threatenin g- Strongly encouraged pt to go to counselor- He does not want to start Cymbalta or any meds at this time [id number] Kem Davila MD [address] [address] [place] [address] 03/16/2017 08:28:23 03/16/2017 09:31:33 Essential hypertension 03392258 I10 HTN controlled on medication - Continue losartan 25mg po daily Dyslipidemia 424191053 E 78.5 Dyslipidem ia, ASCVD risk of 3.5% in 10 years- Discussed importance of changing his diet- Encourage pt to start exercising - Stop simvastati n 20mg po daily- reassess in 3 months Active or passive immunization 432691266 Z23 Declines flu Epidermoid cyst of skin of back 611816308 L72.0 RIght upper back epidermoid cyst- reassuranc e given Mood disorder 16764304 F 39 Pt likely has anxiety due to focus on many minor issues. He is not ready to admit to his anxiety- encouraged pt to seek counseling in CBT [id number] Kem Davila MD [address] [place] [address] 04/13/2017 07:34:19 04/13/2017 09:29:51 Influenza vaccine needed 5067474311 106 Z23 Essential hypertension 22899190 I10 HTN controlled on medication , though pt reports elevation in the afternoon and with exposure to cold. Headaches may be due to cold air- Continue losartan 25mg po daily- pt to check BP BID and bring results in 7 weeks Headache 92182633 R51 Headache, possibly due to cold air or sinus issue- trial of nasal fluticason e [id number] Kem Davila MD [address] [address] [place] [address] 06/01/2017 08:46:15 06/01/2017 11:21:46 Essential hypertension 40861262 I10 HTN controlled on medication ,- Continue losartan 25mg po daily- pt to check BP daily-DIsc ussed low sodium diet Headache 16114530 R51 Headache, possibly due to over use of computer and poor posture- discussed sitting up straight- Discussed use of heat pack and stretching - Encouraged pt to take breaks from screen to present eye strain [id number] Kem Davila MD [address] [address] [place] [address] 07/17/2017 08:47:17 07/17/2017 11:00:27 Adult health examination 224768331 Z00.00 46 year old overweight (BMI 25.6) male with HTN- Discussed diet and exercise for health- Discussed advance care directive and HCP- Discussed ordering TDap but pt declined-N o cancer screening due at this time Laboratory test 91705774 Z00.00 Administra tion of diphtheria, pertussis, and tetanus vaccine 329046350 Z23 Glucose le braxton outside reference range 101022838 R73.09 Last HgbA1C of 6.2- recheck lipid panel, cmp and HgbA1C [id number] MD FANNY Glass [address] [place] [address] 05/16/2018 08:49:53 05/16/2018 10:09:59 Essential hypertension 06665283 I10 HTN, controlled - Refill losartan- Encouraged exercise on regular basis Dyslipidemia 359069891 E 78.2 Dyslipidem ia, ASCVD risk of 7.4% in 10 years- Refill atorvastat in 40mg po daily- Order lipid panel and CMP- reassess in 3 months Impaired g lucose tolerance 9176474 R73.03 last HgbA1C 5.7, down from 6.2- recheck HgbA1C Chest pain 99816657 R07. 9 47 year old male with hx of intermitte nt left chest discomfort without exertion. He has hx of dyslipidem ia with last LDL of 235, HTN and prediabete s (lab values are 1 year old and rechecking today). ASCVD risk is 7.4% in 10 years.- referral to cardiology to see if pt needs stress testing [id number] MD FAUSTINO [facility] [address] [place] [address] 08/15/2018 08:32:38 08/15/2018 10:31:10 Adult health examination 093374825 Z00.00 48 year old overweight (BMI 26.5) male with HTN- Discussed diet and exercise for health- Discussed advance care directive and HCP-No cancer screening due at this time Dyslipidemia 165903748 E 78.2 Dyslipidem ia, ASCVD risk of 7.4% in 10 years- Refill atorvastat in 40mg po daily- Order lipid panel and CMP- reassess in 6 months Increased body mass index 35979012 E66.3 BMI of 26.5, pt reports he has been inactive and eating more- will work on diet and exercising Body mass index 25-29 - overweight 560040694 Z68.26 Epidermoid cyst of skin of back 224208970 L72.0 RIght upper back epidermoid cyst- reassuranc e given HIV screening 351133537 Z11.4 screening for HIV [id number] Kem Davila MD [address] [address] [place] [address] 11/26/2018 15:34:41 11/26/2018 16:57:23 Essential hypertension 15309292 I10 HTN, controlled - continue losartan- Encouraged exercise on regular basis Migraine with aura 38818 06 G43.109 Migraine vs tension vs sinus congestion causing headache- pt told to sleep more, drink fluids, get new glasses- can take excedrin for headache- trial of nasal fluticason e [id number] Queta Torres DO [address] [address] [place] [address] 07/10/2019 10:26:30 07/10/2019 11:39:15 Adult health examination 958126604 Z00.00 Laboratory test 13784958 Z00.00 Prediabetes 234113099 R7 3.03 Essential hypertension 33524460 I10 Toothache 66805983 K08.8 9 [id number] Kem Davila MD [address] [address] [place] [address] 09/20/2019 08:15:33 09/20/2019 12:34:10 Essential hypertension 60469370 I10 HTN, not controlled . at this time he has no symptoms, but he is stressed with big project deadline in 2 days- Increase losartan to 100mg po daily- recheck in 1 week- Encouraged exercise on regular basis [id number] Kem Davila MD [facility] [address] [place] [address] 09/27/2019 08:08:20 09/27/2019 09:53:49 Essential hypertension 35634910 I10 HTN, not controlled . at this time he has no symptoms. pt's lifestyle is not conducive to fpc health with poor sleep patterns due to work and lack of physical activity- Continue losartan to 100mg po daily- restart amlodipine 2.5mg po daily- recheck in 2 week- Encouraged exercise on regular basis- Encouraged rest [id number] Kem Davila MD [address] [address] [place] [address] 10/18/2019 08:38:56 10/18/2019 11:59:11 Essential hypertension 31461972 I10 HTN, not controlled . at this time he has no symptoms.- Continue losartan to 100mg po daily- Continue amlodipine 2.5mg po daily- recheck in 4 week- Encouraged exercise on regular basis- Encouraged rest [id number] Kem Davila MD [address] [address] [place] [address] 06/11/2020 10:52:31 06/11/2020 14:47:01 Essential hypertension 85177176 I10 HTN controlled with medication . he has mild bradycardi a that is asymptomat ic -Refill amlodipine 2.5mg po daily - refill losartan 100mg po dialy - Encouraged pt to check BP at home - Encouraged exercise and healthy eating Dyslipidemia 619617767 E 78.2 Dyslipidem ia, ASCVD risk of 7.4% in 10 years. He has no cadiac symptoms - Refill atorvastat in 40mg po daily - Order lipid panel and CMP - reassess in 6 months [id number] Sj Lezama MD [address] [address] 03/02/2021 13:25:31 03/02/2021 17:06:45 Essential hypertension 06018082 I10 continue same Adult heal th examination 298470924 Z00.00 routine care Screening for malignant neoplasm of colon 858160975 Z12.11 discussed optionsagr ees to FIT tesetingki t given Laboratory test 80299056 Z00.00 results through portal Impaired g lucose tolerance 7810520 R73.03 check labs Administra tion of SARS-CoV-2 antigen vaccine 066731125 Z23 EUA sheet given. Reviewed with pt [...] Covid 19 Vaccinatio n record card given. [id number] Sj Lezama MD [address] [address] 03/11/2021 09:28:25 03/11/2021 14:21:59 Type 2 diabetes mellitus without complication 358369541 E11.9 discussed resultsinc luding A1C now in Diabetic rangemeds for diabetes not needed yetdiet and exercise controlled worsening kidney testingmus t maintain glucose and BPrefer to county manager thenrepeat labs in 3 months with follow up visit [id number] Sj Lezama MD [address] [address] 03/17/2021 13:50:06 03/17/2021 19:55:46 Type 2 diabetes mellitus without complication 243713981 E11.9 [id number] Sj Lezama MD [address] [address] 03/30/2021 17:05:58 04/13/2021 13:12:01 Administration of SARS-CoV-2 antigen vaccine 509026778 Z23 Pt presents today for Covid 19 [...] card updated with Covid 19 vaccine #2. [id number] Sj Lezama MD [address] [address] 05/24/2021 12:50:59 05/24/2021 16:53:23 Type 2 diabetes mellitus 22354820 E11.9 reviewed improved [id number] e dietadvise d push fluidsBMP todayRTC 3 months [id number] Kem Davila MD [address] [address] 03/05/2022 09:44:28 03/05/2022 10:32:14 Type 2 diabetes mellitus 61833981 E11.9 DMT2, controlled with diet on last check- Order microalbum in and HgbA1C- encouraged exercise and limiting carbs in diet Dyslipidemia 840318889 E 78.5 Dyslipidem ia, ASCVD risk of 7.4% in 10 years. He has no cardiac symptoms - Refill atorvastat in 40mg po daily - Order lipid panel and CMP - reassess in 6 months Essential hypertension 36702337 I10 HTN controlled - Refill amlodipine 2.5mg po daily- Refill losartan 100mg po daily- Order CMP- Encouraged exercise and monitoring diet Influenza vaccine needed 7754883683 106 Z23 Declines flu vaccinatio n Administra tion of SARS-CoV-2 antigen vaccine 525669346 Z23 Declines booster [id number] Kem Davila MD [address] [address] [place] [address] 06/16/2022 15:04:57 06/22/2022 12:36:06 Adult health examination 157500880 Z00.00 51 year old male with HTN- Discussed diet and exercise for health- Discussed advance care directive and HCP- Order FIT stool test for colon cancer screening Screening for malignant neoplasm of colon 060387871 Z12.11 Colon cancer screening- order FIT test Type 2 naveen betes mellitus 80602996 E11.9 DMT2, controlled with diet on last check- Order microalbum in and HgbA1C- DM eye exam form given for pt to have retina eye exam in [facility] d- encouraged exercise and limiting carbs in diet Essential hypertension 75849624 I10 HTN not controlled - Increase amlodipine to 5mg po daily- Refill losartan 100mg po daily- Order CMP- Encouraged exercise and monitoring diet Dyslipidemia 774034643 E 78.5 Dyslipidem ia, with diabetes ASCVD risk of 7.4% in 10 years. He has no cardiac symptoms - Refill atorvastat in 40mg po daily - Order lipid panel and CMP - reassess in 6 months Epidermoid cyst of skin 997479036 L72.0 Epidermoid cyst on right posterior shoulder- referral to general surgery Influenza vaccine needed 8162760889 106 Z23 Declines flu vaccinatio n Administra tion of SARS-CoV-2 antigen vaccine 756343632 Z23 Counseled patient on the importance of [...] vaccinatio n. Administra tion of pneumococcal vaccine 88366283 Z23 Hx of DMT2. Pt dcliens pneumovax [id number] Kem Davila MD [facility] [address] [place] [address] 12/04/2023 17:13:17 12/04/2023 18:17:30 Adult health examination 719459325 Z00.00 53 year old male with HTN- Discussed diet and exercise for health- Discussed advance care directive and HCP- Order Cologuard test for colon cancer screening- he declines TDap- Screening for malignant neoplasm of colon 182889593 Z12.11 Colon cancer screening- order Cologuard test Essential hypertension 75837094 I10 HTN not controlled , but pt does not take all of medication s as prescribed - Continue amlodipine to 5mg po daily- Refill losartan 100mg po daily- Order CMP- Encouraged exercise and monitoring diet Dyslipidemia 572196735 E 78.5 Dyslipidem ia, with diabetes ASCVD risk of 7.4% in 10 years. He has no cardiac symptoms - Refill atorvastat in 40mg po daily - Order lipid panel and CMP - reassess in 6 months Type 2 naveen betes mellitus 17573383 E11.9 DMT2, controlled with diet on last check- Order microalbum in and HgbA1C- DM eye exam form given for pt to have retina eye exam in d- encouraged exercise and limiting carbs in diet Administra tion of diphtheria, pertussis, and tetanus vaccine 015326864 Z23 Pt declines TDap [id number] Kem Davila MD [address] [address] [place] [address] 01/11/2024 07:43:24 01/12/2024 07:27:46 Essential hypertension 15034930 I10 HTN not controlled on visit but [...] He has started eating at home Proteinuria 67243504 R80 .9 proteinuri a in pt with diet controlled DMT2 and uncontroll ed HTN- reassess urine and urine protein [id number] MD FAUSTINO [facility] [address] [place] [address] 06/19/2024 16:03:16 06/19/2024 17:12:08 Essential hypertension 87919918 I10 HTN not controlled in office or at home- Will Increase amlodipine 10mg daily- Continue losartan 100mg po daily- Encouraged pt to start exercise routine- He has started eating at home Glucose le braxton outside reference range 231023658 R73.09 Last HgbA1C of 6.4- recheck lipid panel and HgbA1C Dyslipidemia 341246078 E 78.5 Dyslipidem ia, with diabetes ASCVD risk of 12.1% in 10 years. He has no cardiac symptoms - Refill atorvastat in 40mg po daily - Order lipid panel - reassess in 4 months Bone spur of left foot 2685192537 12070 M25.775 left heel pain for 1 year- Encouraged use of heel insert-ref erral to podiatry [id number] Kem Davila MD [facility] [address] [place] [address] 10/17/2024 07:19:15 10/17/2024 09:02:51 Essential hypertension 77515697 I10 18224 HTN controlled at home, but pt not consistent with lifestyle changes previously discussed- Refill amlodipine 10mg daily- Refill losartan 100mg po daily- Pt motivated to start exercising - Encouraged dietary changes Prediabetes 935302364 R7 3.03 R73.9 216574 last HgbA1C 5.7, down from 6.2- recheck HgbA1C Asymptomat ic proteinuria 196084097 R80.9 014262 proteinuri a in pt with diet controlled DMT2 and uncontroll ed HTN- reassess urine protein Dyslipidemia 118367918 E 78.5 Dyslipidem ia, with diabetes ASCVD risk of 12.1% in 10 years. He has no cardiac symptoms - Refill atorvastat in 40mg po daily - Order lipid panel - reassess in 4 months [id number] Kem Davila MD [facility] [address] [place] [address] 02/11/2025 09:55:34 02/11/2025 11:31:39 Essential hypertension [id number] I10 HTN not controlled but he controlled at home, but pt not consistent with lifestyle changes previously discussed- Refill amlodipine 10mg daily- Refill losartan 100mg po daily- start spironolac tone 25mg daily- Pt motivated to start exercising - Encouraged dietary changes Type 2 naveen betes mellitus 72153605 E11.29 R80.9 [id number] DMT2, not controlled with last HgbA1C 7.3%. [...] [employer] - [employer] (HMO) [id number] Jeremiah Worley [id number] Jeremiah Worley 06/16/2022 1 [place] [id number] Jeremiah Worley [id number] Jeremiah Worley 03/27/2025 2 [employer] - [facility] (PPO) Jeremiah Worley [id number] Jeremiah Worley 01/08/2024 1 [facility] Jeremiah Worley [id number] Jeremiah Worley 03/27/2025 1 [facility] (O) Jeremiah Worley [id number] Jeremiah Worley 06/16/2022 1 [employer] - M[employer] (PPO) Jeremiah Worley [id number] Jeremiah Worley 07/10/2019 1 *SELF PAY* Jered Worley Notes Date Note Type Note Provider Name and Address Organization Details Recorded Time 12/04/2023 text/html Here for annual physical- States he is doing well-he lives in [facility] ([facility])- he has increased pork intake and rice intake. states he is aware his diet is not as healthy-Pt sates he often forgets to take his amlodipine Kem Davila MD [address] [place] [address], [phone], [facility] 12/04/2023 21:10:07 01/11/2024 text/html Hypertension F/UReported [...] no LE edema Kem Davila MD [address] [place], [phone], [facility] 01/11/2024 17:29:40 06/19/2024 text/html Hypertension F/UReported by [facility] lifestyle, patient reportsnot exercising regularlybut reportslimiting/avoidi ng [...] he eats food Kem Davila MD [address] [place], [phone], [facility] 06/19/2024 17:08:28 10/17/2024 text/html Hypertension F/UReported by [facility], patient reportsnot exercising regularlyandhigh salt intake. [...] no increased urination- Kem Davila MD [address] [place], [phone], [facility] 10/17/2024 08:50:31 02/11/2025 text/html Diabetes F/URepo rted by [facility] context, patient reportsno side effects from medications. For associated symptoms, patient reportsno weight gain,no weight loss,no dizziness,no sweats,no headaches,no confusion,no increased thirst,no increased appetite,no increased urination,no blurred vision,no numbness of feet, andno calluses on feet. Hypertension F/UReported by [facility] lifestyle, patient reportsnot exercising regularlyandhigh salt intake. For associated symptoms, patient reportsno dizziness,no lightheadedness,no chest pain,no shortness of breath,no palpitations,no edema, andno calf pain with exertion. For medications, patient reportstaking medications as directedandno side effects from medication.ROS as noted in the HPI Kem Davila MD [address] [place] [address], [phone], [facility] 03/05/2025 09:32:52
[2025-04-24 12:07] LABS: Anti Nuclear Antibody Screen NEGATIVE (NEGATIVE)
== END 2025-04-23 15:37 | disposition home or self-care (01) ==
LOC: HO.US 15:36
PROVIDERS: Visit Provider Internal Medicine Hypertension Specialist
DX: I12.9 Hypertensive chronic kidney disease with stage 1 through stage 4 chronic kidney disease, or unspecified chronic kidney disease (principal); N18.9 Chronic kidney disease, unspecified
CPT/HCPCS: 36415; 76775; 80053; 81001; 82570; 83970; 84156; 84165; 85027; 86038; 86160

== ENCOUNTER → 2025-04-23 15:39 | Outpatient (BNV) | payer OTHER, SELFPAY | PROVIDERS: Visit Provider Radiology Diagnostic Radiology | DX: N18.9 Chronic kidney disease, unspecified (principal); N28.1 Cyst of kidney, acquired | CPT/HCPCS: 76775 ==

== ENCOUNTER 2025-05-01 10:13 | Outpatient (AMB) | payer OTHER, SELFPAY ==
--- NOTE | 2025-05-01 10:16 | HO.NEPHOV ---
Vital Signs 05/01/25 10:17 Height 5 ft 6 in Weight 155 lb BMI 25.0 BP 90/60 Blood Pressure Location Lt brachial Position Sitting Pulse 79 Pulse Source Pulse Oximeter Pulse Oximetry (%) 97 Oxygen Delivery Method Room Air Intake Visit Reasons: 3-4wk f/u w/labs Skate Maker Required: No Accompanied by: Self / Same As Patient Allergies No Known Allergies Allergy (Verified 05/01/25 10:20) Medication List - Last Reconciled 05/01/25 by Sunday Red MD amlodipine 10 mg PO DAILY atorvastatin 40 mg PO DAILY dapagliflozin propanediol (Farxiga) 10 mg PO DAILY losartan 100 mg PO DAILY spironolactone 25 mg PO DAILY HPI Comments Details: History of Present Illness The patient is a 54 year old male presenting for review of his lab results. He has a history of chronic kidney disease, proteinuria, and hypertension dating back to approximately 2013. His recent serum creatinine was 1.57 mg/dL, and a urine test showed 700 mg of protein. A renal sonogram revealed a large, simple cyst on the left kidney, with no findings of blockage or stones. Serology tests, including LUBA and ANCA, were negative for active inflammation. The patient's medications for blood pressure include amlodipine, losartan, and spironolactone. He started spironolactone about a month ago and reports his blood pressure is now low, at 90/60, and he experiences occasional lightheadedness upon standing. Results - Labs: - Serum Creatinine: 1.57 mg/dL. - Urine Protein: 700 mg. - Serologies (LUBA, ANCA, complements): Normal. - Urinalysis: Positive for protein, negative for blood. - Imaging: - Renal sonogram: Revealed a large simple cyst in the left kidney; no evidence of blockage or stones. [facility] Medical History (Updated 04/03/25 @ 14:12 by Sunday Red MD) Pain in shoulder region Impaired glucose tolerance Headache Essential hypertension Insomnia Dyslipidemia Type 2 diabetes mellitus Family History Mother Hypertensive disorder Father Hypertensive disorder Kidney disease Dialysis patient Social History Alcohol intake: never Patient Tobacco Use Status: Never used Tobacco Physical Exam Exam Exam: Physical Exam General: Awake. Comfortable. HENT: Neck supple. Mucosa moist. Pulmonary: Lungs aeration equal. No rales. Cardiology: Heart S1-S2 heard. No gallop. Blood pressure is low at 90/60. Abdomen: Soft. Non tender. Bowel sounds normal. Neurologic: No involuntary movements. No myoclonus. Reports occasional lightheadedness when standing, possibly due to low blood pressure. Extremities: No edema. No rash. Vital Signs: Last Vital Signs Pulse 79 05/01/25 10:17 BP 90/60 05/01/25 10:17 Pulse Ox 97 05/01/25 10:17 Oxygen Delivery Method Room Air 05/01/25 10:17 BMI result Body Mass Index 25.0 Results Reviewed Nephrology Results: Hgb, (14.0-18.0) 15.7 g/dl 04/23/25 WBC, (4.8-10.8) 9.0 X10*3/uL 04/23/25 Plt Count, (160-400) 239 X10*3/uL 04/23/25 Sodium, (135-145) 140 mmol/L 04/23/25 Potassium, (3.3-5.1) 4.0 mmol/L 04/23/25 Chloride, (96-108) 110 mmol/L H 04/23/25 Carbon Dioxide, (22-29) 23 mmol/L 04/23/25 BUN, (9-16) 19 mg/dL H 04/23/25 Creatinine, (0.5-1.4) 1.57 mg/dL H 04/23/25 Calcium, (8.4-10.2) 9.3 mg/dL 04/23/25 PTH Intact, (8.7-77.1) 137.4 pg/mL H 04/23/25 Urine Protein, (Neg-Trace) 30 (1+) mg/dL H 04/23/25 Urine Creatinine 45.35 mg/dL 04/23/25 Renal US 04/23/25 Assessment & Plan Assessment & Plan (1) CKD (chronic kidney disease): Code(s): N18.9 - Chronic kidney disease, unspecified Category: Medical (2) HTN (hypertension): Code(s): I10 - Essential (primary) hypertension Category: Medical Plan Plan 1. Chronic Kidney Disease And Proteinuria - The patient's chronic kidney disease and proteinuria are attributed to his long-standing history of hypertension. - His proteinuria of 700 mg is elevated but not at a level of high concern, and his serologies were negative for active inflammation, making a kidney biopsy unnecessary at this time. - The patient will continue taking losartan and Farxiga for their renoprotective benefits. - He was advised to drink plenty of fluids and will have his kidney function rechecked in 6-8 weeks, with the expectation that the creatinine will improve or stabilize. - Follow-up is scheduled for June. 2. Hypertension And Medication-Induced Hypotension - The patient's blood pressure of 90/60 mmHg is too low and is causing symptoms of lightheadedness. - The hypotension is likely related to his current antihypertensive regimen. - The plan is to discontinue spironolactone. - The patient will continue amlodipine and losartan. 3. Left Renal Cyst - A renal sonogram showed a large, simple, fluid-filled cyst on the left kidney. - The cyst is considered benign and not dangerous. - The plan is to monitor the cyst without further intervention at this time. Orders: Orders Basic Metabolic Panel Today I10 - Essential (primary) hypertension, N18.9 - Chronic kidney disease, unspecified Coding Level of Care Code Est Pt Level 4 (38465) Diagnoses CKD (chronic kidney disease) N18.9 HTN (hypertension) I10
[2025-05-01 10:17] VITALS: BP 90/60; PULSE 79; O2SAT 97; BMI 25.0
--- OUTSIDE RECORDS SUMMARY | 2025-05-01 12:38 | XMS_ITS | Clinical Summary ---
Author Organization [facility] Address [address] [place] [phone] Phone Care Team Providers Care House Worker Name Role Phone Pcp, Not Required [...] on file Insurance PPO EPO PPO EPO [facility] PPO EPO [facility] PPO EPO PPO EPO PPO EPO PPO EPO Care Teams House Worker Relationship Specialty Start Date End Date Pcp, Not Required PCP - General 11/02/16 Additional Source Comments The information contained in this document represents components of the legal health record. It is not the complete legal health record.[facility]
== END 2025-05-01 10:32 | disposition home or self-care (01) ==
LOC: HO.HKA 10:14
PROVIDERS: Visit Provider Internal Medicine Hypertension Specialist
DX: N18.9 Chronic kidney disease, unspecified (principal); I12.9 Hypertensive chronic kidney disease with stage 1 through stage 4 chronic kidney disease, or unspecified chronic kidney disease
CPT/HCPCS: 99214